=== PATIENT | male | born 1985 | race Caucasian/White ===

== ENCOUNTER 2018-05-08 05:43 | Outpatient (CLI) | payer OTHER ==
[~2018-05-08] VITALS: Ht 177.8 cm; Wt 70.3 kg
== END 2018-05-08 12:38 | disposition home or self-care (01) ==
LOC: PREOP 05:43 → EDBD 09:00 → PREOP 12:38
PROVIDERS: ATTEND Surgery
DX: Z01.818 Encounter for other preprocedural examination (principal)

== ENCOUNTER 2018-09-14 22:02 | Emergency (ER) | payer SELFPAY ==
[~2018-09-14] VITALS: Ht 175.3 cm; Wt 86.2 kg
[~2018-09-14 22:02] MED LIST: ACHD5005 PO
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
[2018-09-14] MEDS ORDERED: ONDANSETRON 4 MG/2 ML (SDV) Z0FRAN IVP ONE (22:30)
[2018-09-14] MEDS ORDERED: NS 1000 ML IV BAG IV ONE (22:30)
[2018-09-14] MEDS ORDERED: fentaNYL INJECTION 100 MCG/2 ML AMP IVP ONE (22:30)
[2018-09-14] MEDS ORDERED: LIDOCAINE 1% INJ 20 ML 20 ML VIAL INJ ONE (22:30)
[2018-09-14 22:34] LABS: HEMATOCRIT 42 % (40-54); MEAN CORPUSCULAR HEMOGLOBIN 32 PG (25-34); MEAN CORPUSCULAR HGB CONC 34 G/DL (32-36); MEAN CORPUSCULAR VOLUME 96 FL (80-99); PLATELET COUNT 198 10^3/uL (130-400); RED CELL DISTRIBUTION WIDTH 12.8 % (10.0-14.5); WHITE BLOOD COUNT 8.9 10^3/uL (4.3-11.0)
[2018-09-14 22:35] LABS: BASOPHILS # (AUTO) 0.1 10^3/uL (0.0-0.1); BASOPHILS % (AUTO) 1 % (0-10); EOSINOPHILS # (AUTO) 0.3 10^3/uL (0.0-0.3); EOSINOPHILS % (AUTO) 3 % (0-10); LYMPHOCYTES # (AUTO) 4.2 X 10^3 (1.0-4.0); LYMPHOCYTES % (AUTO) 47 % (12-44); MEAN PLATELET VOLUME 9.4 FL (7.4-10.4); MONOCYTES # (AUTO) 0.7 X 10^3 (0.0-1.0); MONOCYTES % (AUTO) 8 % (0-12); NEUTROPHILS # (AUTO) 3.7 X 10^3 (1.8-7.8); NEUTROPHILS % (AUTO) 42 % (42-75)
[2018-09-14 22:47] LABS: INR 0.9 (0.8-1.4); PROTHROMBIN TIME PATIENT 12.2 SEC (12.2-14.7)
[2018-09-14 23:00] LABS: BILIRUBIN,TOTAL < 0.2 MG/DL (0.1-1.0); BUN/CREATININE RATIO 12; CALCIUM 8.7 MG/DL (8.5-10.1); CARBON DIOXIDE 24 MMOL/L (21-32); CHLORIDE 106 MMOL/L (98-107); CREATININE SERUM 0.58 MG/DL (0.60-1.30); GFR ESTIMATED > 60; GLUCOSE 118 MG/DL (70-105); POTASSIUM 3.8 MMOL/L (3.6-5.0); SODIUM 144 MMOL/L (135-145)
[2018-09-14] MEDS ORDERED: NS 50 ML (IVPB) BAG IV ONE (23:00)
[2018-09-14] MEDS ORDERED: HOLD METFORMIN - RECEIVED CONTRAST 20 ML VIAL IV SCH (23:00)
[2018-09-14] MEDS ORDERED: IOHEXOL 350 MG/ML 100 ML (OMNIPAQUE 350) VIAL IV ONE (23:00)
[2018-09-14 23:01] LABS: ALANINE AMINOTRANSFERASE 25 U/L (0-55); ALBUMIN 4.3 GM/DL (3.2-4.5); ALKALINE PHOSPHATASE 52 U/L (40-136); TOTAL PROTEIN 7.2 GM/DL (6.4-8.2)
--- NOTE | 2018-09-14 23:10 | NUR ---
critical high ETOH of [address] Cortez
[2018-09-15] MEDS ORDERED: CEPH-507 PO (00:42)
[2018-09-15 00:45] VITALS: BP 130/84
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
== END 2018-09-15 00:45 | disposition home or self-care (01) ==
LOC: EDUNIT# 22:02 → ER FS 22:05
DX: S09.90XA Unspecified injury of head, initial encounter (principal); S01.92XA Laceration with foreign body of unspecified part of head, initial encounter; F10.20 Alcohol dependence, uncomplicated; V29.40XA Motorcycle driver injured in collision with unspecified motor vehicles in traffic accident, initial encounter
CPT/HCPCS: 36415; 70450; 71260; 72125; 74177; 80053; 80320; 85025; 85610; 85730

== ENCOUNTER 2019-02-17 08:11 | Emergency (ER) | payer SELFPAY ==
[~2019-02-17] VITALS: Ht 177.8 cm; Wt 85.5 kg
[~2019-02-17 08:11] MED LIST changes: +CEPH-507 PO
[2019-02-17] MEDS ORDERED: KETOROLAC 30 MG/ML VIAL IVP ONE (08:30)
[2019-02-17] MEDS ORDERED: NS IV 1000 ML 1,000 ML IV SCH ×2 (08:30→10:45)
[2019-02-17] MEDS ORDERED: ONDANSETRON 4 MG/2 ML (SDV) Z0FRAN IVP ONE ×2 (08:30→10:45)
--- NOTE | 2019-02-17 08:35 | ED Abdominal Pain ---
General Chief Complaint: Abdominal/GI Problems Stated Complaint: ABD PAIN Source of Information: Patient Exam Limitations: No Limitations History of Present Illness Date Seen by Provider: Feb 17, 2019 Time Seen by Provider: 08:22 Initial Comments The patient is a pleasant 33-year-old male presents for evaluation of left lower quadrant abdominal pain which started on Sunday, 2 days ago. He denies previous similar pain and denies any past surgical history to the abdomen. He reports that his urine has been dark and/or more concentrated than usual but he has not noticed any gross blood. He had a normal bowel movement this morning without any blood or pain. She's been having nausea and vomiting since Sunday as well. He states that the symptoms he drinks something he vomits. He denies any significant past medical history. He is alert and oriented 4, calm, and appears to be in no distress at this time. He denies back or flank pain, fevers or chills, penile or testicular pain, dizziness or syncope. Timing/Duration: 2-3 Days Severity/Quality: Moderate Location: LLQ Radiation: No Radiation Activities at Onset: None Modifying Factors: Improves With Analgesics Associated Symptoms: Denies Symptoms Allergies and Home Medications Allergies Coded Allergies: No Known Drug Allergies (Unverified , 05/08/18) Home Medications Cephalexin 500 Mg Capsule, 500 MG PO BID Prescribed by: DAISHA ARMENTA on 09/15/18 0042 Hydrocodone Bit/Acetaminophen 1 Tab Tab, 4 TAB PO Q6H PRN for PAIN-MODERATE Prescribed by: NICOLE TODD on 05/15/18 1133 Hydrocodone Bit/Acetaminophen 1 Tab Tab, 1 TAB PO Q6H PRN for PAIN-MODERATE Prescribed by: NICOLE TODD on 05/15/18 1329 Hydrocodone/Acetaminophen 1 Each Tablet, 1 TAB PO Q4-6HR Prescribed by: EDUARDO DOYLE on 02/17/19 0953 Moxifloxacin HCl 400 Mg Tablet, 400 MG PO DAILY Prescribed by: EDUARDO DOYLE on 02/17/1953 Ondansetron 4 Mg Tab.rapdis, 4 MG PO Q6H Prescribed by: EDUARDO DOYLE on 02/17/19 0953 Patient Home Medication List Home Medication List Reviewed: Yes Review of Systems Review of Systems Constitutional: no symptoms reported EENTM: No Symptoms Reported Respiratory: No Symptoms Reported, See HPI Cardiovascular: No Symptoms Reported, See HPI Gastrointestinal: Abdominal Pain, Nausea, Vomiting Genitourinary: No Symptoms Reported, See HPI Musculoskeletal: no symptoms reported Skin: no symptoms reported Psychiatric/Neurological: No Symptoms Reported, See HPI Endocrine: No Symptoms Reported, See HPI Hematologic/Lymphatic: No Symptoms Reported, See HPI All Other Systems Reviewed Negative Unless Noted: Yes Past Qabkxcz-Parhos-Ufmpyj Hx Past Med/Social Hx: Reviewed Nursing Past Med/Soc Hx Patient Social History Alcohol Beverage of Choice: Beer Type Used: Cigarettes 2nd Hand Smoke Exposure: No Recent Hopitalizations: No Immunizations Up To Date Tetanus Booster (TDap): Less than 5yrs Seasonal Allergies Seasonal Allergies: No Past Medical History Surgeries: No Respiratory: No Cardiac: No Neurological: No Reproductive Disorders: No Sexually Transmitted Disease: No HIV/AIDS: No Genitourinary: No Gastrointestinal: No Musculoskeletal: No Endocrine: No HEENT: No Loss of Vision: Denies Hearing Impairment: Denies Cancer: No Psychosocial: No Integumentary: No Blood Disorders: No Adverse Reaction/Blood Tranf: No (N/A) Physical Exam Vital Signs Vital Signs - First Documented 02/17/19 08:18 Temp 36.8 Pulse 79 Resp 16 B/P (MAP) 136/91 (106) Pulse Ox 97 Capillary Refill : Height/Weight/BMI Height: 5'9.00" Weight: 190lbs. 0oz. 86.376543wk; 24.5 BMI Method:Stated General Appearance: WD/WN, no apparent distress HEENT: PERRL/EOMI, normal ENT inspection, TMs normal, pharynx normal Respiratory: chest non-tender, lungs clear, normal breath sounds, no respiratory distress, no accessory muscle use Cardiovascular: regular rate, rhythm, no edema, no gallop, no JVD Gastrointestinal: normal bowel sounds, soft, no organomegaly, no pulsatile mass, tenderness (ttp LLQ, moderate, mild ttp in epigastric region, soft, no d istension, no guarding, no rigidity) Extremities: normal range of motion, non-tender, normal inspection, no pedal edema Back: normal inspection, no CVA tenderness, no vertebral tenderness Neurologic/Psychiatric: informatics nurse specialist II-XII nml as tested, alert, normal mood/affect, oriented x 3 Skin: normal color, warm/dry Procedures/Interventions Suture Size: 5-0 Progress/Results/Core Measures Results/Orders Lab Results Laboratory Tests Test 02/17/19 08:35 02/17/19 11:43 Range/Units White Blood Count 9.7 4.3-11.0 10^3/uL Red Blood Count 4.88 4.35-5.85 10^6/uL Hemoglobin 16.5 13.3-17.7 G/DL Hematocrit 48 40-54 % Mean Corpuscular Volume 34 L 80-99 FL Mean Corpuscular Hemoglobin 35 H 25-34 PG Mean Corpuscular Hemoglobin Concent 47 H 32-36 G/DL Red Cell Distribution Width 13.0 10.0-14.5 % Platelet Count 264 130-400 10^3/uL Mean Platelet Volume 9.3 7.4-10.4 FL Neutrophils (%) (Auto) 73 42-75 % Lymphocytes (%) (Auto) 17 12-44 % Monocytes (%) (Auto) 8 0-12 % Eosinophils (%) (Auto) 1 0-10 % Basophils (%) (Auto) 1 0-10 % Neutrophils # (Auto) 7.0 1.8-7.8 X 10^3 Lymphocytes # (Auto) 1.7 1.0-4.0 X 10^3 Monocytes # (Auto) 0.7 0.0-1.0 X 10^3 Eosinophils # (Auto) 0.1 0.0-0.3 10^3/uL Basophils # (Auto) 0.1 0.0-0.1 10^3/uL Sodium Level 139 135-145 MMOL/L Potassium Level 4.5 3.6-5.0 MMOL/L Chloride Level 98 98-107 MMOL/L Carbon Dioxide Level 28 21-32 MMOL/L Anion Gap 13 5-14 MMOL/L Blood Urea Nitrogen 13 7-18 MG/DL Creatinine 0.81 0.60-1.30 MG/DL Estimat Glomerular Filtration Rate > 60 BUN/Creatinine Ratio 16 Glucose Level 136 H 70-105 MG/DL Calcium Level 9.1 8.5-10.1 MG/DL Corrected Calcium 9.1 8.5-10.1 MG/DL Total Bilirubin 0.3 0.1-1.0 MG/DL Aspartate Amino Transf (AST/SGOT) 56 H 5-34 U/L Alanine Aminotransferase (ALT/SGPT) 20 0-55 U/L Alkaline Phosphatase 66 40-136 U/L Total Protein 7.4 6.4-8.2 GM/DL Albumin 4.0 3.2-4.5 GM/DL Amylase Level 65 25-125 U/L Lipase 84 H 8-78 U/L Urine Color YELLOW Urine Clarity CLEAR Urine pH 8.0 5-9 Urine Specific Cel[place] 1.010 L 1.016-1.022 Urine Protein NEGATIVE NEGATIVE Urine Glucose (UA) NEGATIVE NEGATIVE Urine Ketones NEGATIVE NEGATIVE Urine Nitrite NEGATIVE NEGATIVE Urine Bilirubin NEGATIVE NEGATIVE Urine Urobilinogen 0.2 NORMAL MG/DL Urine Leukocyte Esterase NEGATIVE NEGATIVE Urine RBC (Auto) NEGATIVE NEGATIVE Urine RBC RARE /HPF Urine WBC RARE /HPF Urine Squamous Epithelial Cells RARE /HPF Urine Crystals NONE /LPF Urine Bacteria NEGATIVE /HPF Urine Casts NONE /LPF Urine Mucus NONE /LPF Urine Culture Indicated NO My Orders Orders - EDUARDO DOYLE DO Comprehensive Metabolic Panel (02/17/19 08:26) Lipase (02/17/19 08:26) Amylase (02/17/19 08:26) Ua Culture If Indicated (02/17/19 08:26) Ed Iv/Invasive Line Start (02/17/19 08:26) Cbc With Automated Diff (02/17/19 08:26) Ct Abdomen/Pelvis W (02/17/19 08:26) Nothing By Mouth (02/17/19 Lunch) Ns Iv 1000 Ml (Sodium Chloride 0.9%) (02/17/19 08:30) Ketorolac Injection (Toradol Injection) (02/17/19 08:30) Ondansetron Injection (Zofran Injectio (02/17/19 08:30) Iohexol Injection (Omnipaque 350 Mg/Ml 1 (02/17/19 08:45) Received Contrast (Hold Metformin- Contr (02/17/19 08:45) Sodium Chloride Flush (Catheter Flush Sy (02/17/19 08:45) Ns (Ivpb) (Sodium Chloride 0.9% Ivpb Bag (02/17/19 08:45) Ondansetron Injection (Zofran Injectio (02/17/19 10:45) Ns Iv 1000 Ml (Sodium Chloride 0.9%) (02/17/19 10:45) Medications Given in ED Current Medications Medications Dose Ordered Sig/Connor Route Start Time Stop Time Status Last Admin Dose Admin Iohexol 100 ml ONCE ONCE IV 02/17/19 08:45 02/17/19 08:46 DC 02/17/19 09:02 100 ML Ketorolac Tromethamine 30 mg ONCE ONCE IVP 02/17/19 08:30 02/17/19 08:31 DC 02/17/19 09:03 30 MG Ondansetron HCl 4 mg ONCE ONCE IVP 02/17/19 08:30 02/17/19 08:31 DC 02/17/19 09:03 4 MG Ondansetron HCl 4 mg ONCE ONCE IVP 02/17/19 10:45 02/17/19 10:46 DC 02/17/19 10:51 4 MG Sodium Chloride 10 ml NEEDED PRN IV 02/17/19 08:45 02/17/19 09:02 10 ML Sodium Chloride 100 ml ONCE ONCE IV 02/17/19 08:45 02/17/19 08:46 DC 02/17/19 09:02 100 ML Vital Signs/I&O 02/17/19 08:18 Temp 36.8 Pulse 79 Resp 16 B/P (MAP) 136/91 (106) Pulse Ox 97 Progress Progress Note : Progress Note @0945 - CT demonstrates evidence of duodenitis and colitis. The patient denies history of Crohn's disease or inflammatory bowel disease. Awaiting urinalysis at this time. @1217 - patient updated on lab and imaging results. He will go home with a prescription for moxifloxacin, [place], and Zofran. He is to follow-up with his PCP and/or GI specialist in the next 1-2 days and to return to the emergency Department immediately for new or worsening symptoms. He expresses verbal understanding and agreement with the plan. Departure Impression Primary Impression: Duodenitis Additional Impression: Colitis Disposition: 01 HOME, SELF-CARE Condition: Stable Departure-Patient Inst. Decision time for Depature: 12:21 Referrals: NO,LOCAL PHYSICIAN (PCP/Family) Primary Care Physician Patient Instructions: Colitis Add. Discharge Instructions: Take the prescribed medications as directed. Return to the emergency Department immediately for new or worsening symptoms. Drink plenty of water at home. Follow-up with the GI specialist provided, or your doctor, in the next 2-3 days. Scripts Hydrocodone/Acetaminophen ([place] 5-325 Tablet) 1 Each Tablet 1 TAB PO Q4-6HR for Pain MDD 10 TABS for 7 Days, #15 TAB Prov: EDUARDO DOYLE DO 02/17/19 Ondansetron (Ondansetron Odt) 4 Mg Tab.rapdis 4 MG PO Q6H for Nausea/Vomiting for 7 Days, #20 TAB Prov: EDUARDO DOYLE DO 02/17/19 Moxifloxacin HCl (Moxifloxacin HCl) 400 Mg Tablet 400 MG PO DAILY for colitis/duodenitis for 10 Days, #10 TAB Prov: EDUARDO DOYLE DO 02/17/19 EDUARDO DOYLE DO Feb 17, 2019 08:35
[2019-02-17] MEDS ORDERED: HOLD METFORMIN - RECEIVED CONTRAST 20 ML VIAL IV SCH (08:45)
[2019-02-17] MEDS ORDERED: IOHEXOL 350 MG/ML 100 ML (OMNIPAQUE 350) VIAL IV ONE (08:45)
[2019-02-17] MEDS ORDERED: CATHETER FLUSH 10 ML SYR IV PRN (08:45)
[2019-02-17] MEDS ORDERED: NS 100 ML (IVPB) BAG IV ONE (08:45)
[2019-02-17 08:50] LABS: HEMATOCRIT 48 % (40-54); HEMOGLOBIN 16.5 G/DL (13.3-17.7); WHITE BLOOD COUNT 9.7 10^3/uL (4.3-11.0)
[2019-02-17 08:51] LABS: BASOPHILS % (AUTO) 1 % (0-10); EOSINOPHILS % (AUTO) 1 % (0-10); LYMPHOCYTES % (AUTO) 17 % (12-44); MEAN CORPUSCULAR HEMOGLOBIN 35 PG (25-34); MEAN CORPUSCULAR HGB CONC 47 G/DL (32-36); MEAN CORPUSCULAR VOLUME 34 FL (80-99); MEAN PLATELET VOLUME 9.3 FL (7.4-10.4); MONOCYTES % (AUTO) 8 % (0-12); NEUTROPHILS % (AUTO) 73 % (42-75); PLATELET COUNT 264 10^3/uL (130-400)
[2019-02-17 08:52] LABS: BASOPHILS # (AUTO) 0.1 10^3/uL (0.0-0.1); EOSINOPHILS # (AUTO) 0.1 10^3/uL (0.0-0.3); LYMPHOCYTES # (AUTO) 1.7 X 10^3 (1.0-4.0); MONOCYTES # (AUTO) 0.7 X 10^3 (0.0-1.0)
--- NOTE | 2019-02-17 09:15 | NUR ---
hr 68, spo2 98, bp 123/82, r 16
[2019-02-17 09:36] LABS: CARBON DIOXIDE 28 MMOL/L (21-32); CHLORIDE 98 MMOL/L (98-107); POTASSIUM 4.5 MMOL/L (3.6-5.0); SODIUM 139 MMOL/L (135-145)
--- NOTE | 2019-02-17 09:36 | Diagnostic Imaging Report ---
PROCEDURE: CT abdomen and pelvis with contrast. TECHNIQUE: Multiple contiguous axial images were obtained through the abdomen and pelvis after administration of intravenous contrast. Auto Exposure Controls were utilized during the CT exam to meet ALARA standards for radiation dose reduction. DATE: February 17, 2019. COMPARISON: CT chest, abdomen, and pelvis September 14, 2018. INDICATION: 33-year-old male, left lower quadrant abdominal pain, nausea, vomiting. FINDINGS: The visualized portions of the lung bases are clear. The heart is not enlarged. There is no pericardial effusion. The liver is normal in size and contour. There is no identified liver lesion. The main, right, and left portal veins are patent. The gallbladder is unremarkable. There is no intrahepatic or extrahepatic bile duct dilation. The main pancreatic duct is not abnormally dilated. Unremarkable appearance of the pancreatic parenchyma. There is abnormal fluid attenuation centered primarily adjacent to the second portion of duodenum although does extend near the level of the pancreatic head. The spleen is normal in size. The adrenal glands are unremarkable. Unremarkable appearance of the renal parenchyma. The urinary collecting systems are not distended. There is no identified renal or ureteral stone. The urinary bladder is unremarkable. There is abnormal wall thickening of the sigmoid colon which is not contiguous although does involve long segments of the sigmoid colon. There is also wall thickening of the transverse colon. The appendix is unremarkable and well seen on axial image 57 and adjacent sequential images. As mentioned above, there is abnormal fluid attenuation adjacent to the first and the second portion of duodenum. There does appear to be mucosal enhancement of the first and second portions of duodenum. There is no free intraperitoneal air, drainable fluid collection, or free pelvic fluid. There are atherosclerotic calcifications. There is no identified abnormally enlarged lymph node in the abdomen or pelvis which meets CT size criteria for adenopathy. There is a sclerotic lesion of the right femoral neck with narrow zone of a zone of transition measuring 13 mm in size with internal attenuation most suggestive of a benign bone island. There are bilateral L5 pars interarticularis defects. There is grade 2 anterolisthesis of L5 on S1 measuring 10 mm. There is severe disc height loss at L5-S1. There is a disc bulge at L4-L5. There is no identified acute bony abnormality. IMPRESSION: CT ABDOMEN AND PELVIS. 1. Abnormal fluid attenuation centered primarily adjacent to the first and second portions of duodenum with mucosal enhancement of the duodenum at this level. This most likely reflects an infectious or inflammatory duodenitis. The pancreatic parenchyma is unremarkable. 2. Abnormal wall thickening of the sigmoid colon and transverse colon most likely relating to an infectious or inflammatory colitis. 3. Bilateral L5 pars interarticularis defects with grade 2 anterolisthesis of L5 on S1. Dictated by: Dictated on workstation # [id number]
[2019-02-17 09:37] LABS: ALANINE AMINOTRANSFERASE 20 U/L (0-55); ALKALINE PHOSPHATASE 66 U/L (40-136); AMYLASE 65 U/L (25-125); BILIRUBIN,TOTAL 0.3 MG/DL (0.1-1.0); BUN/CREATININE RATIO 16; CALCIUM 9.1 MG/DL (8.5-10.1); CREATININE SERUM 0.81 MG/DL (0.60-1.30); GFR ESTIMATED > 60; GLUCOSE 136 MG/DL (70-105); TOTAL PROTEIN 7.4 GM/DL (6.4-8.2)
[2019-02-17 09:38] LABS: LIPASE 84 U/L (8-78)
[2019-02-17] MEDS ORDERED: MOXI400T31 PO (09:53)
[2019-02-17] MEDS ORDERED: HYDR-4226 PO (09:53)
[2019-02-17] MEDS ORDERED: ONDA4TAB11 PO (09:53)
--- NOTE | 2019-02-17 10:30 | NUR ---
hr 68, spo2 98, bp 124/86, r 18
--- NOTE | 2019-02-17 10:35 | NUR ---
Patient states he is still unable to urinate at this time. Also is nauseous from the water that he drank. Notified Dr Angulo.
--- NOTE | 2019-02-17 11:20 | NUR ---
hr 67, spo2 99, bp 122/80, r 16
[2019-02-17 12:10] LABS: CLARITY,URINE CLEAR; COLOR,URINE YELLOW
[2019-02-17 12:11] LABS: BACTERIA,URINE NEGATIVE /HPF; BILIRUBIN,URINE NEGATIVE (NEGATIVE); GLUCOSE, URINE (UA) NEGATIVE (NEGATIVE); KETONES,URINE NEGATIVE (NEGATIVE); LEUKOCYTE ESTERASE ,URINE NEGATIVE (NEGATIVE); NITRITE,URINE NEGATIVE (NEGATIVE); PROTEIN,URINE NEGATIVE (NEGATIVE); RBC,URINE RARE /HPF; SQUAMOUS EPITHELIAL CELL,UR RARE /HPF; UROBILINOGEN,URINE 0.2 MG/DL (NORMAL); WBC,URINE RARE /HPF
[2019-02-17 12:26] VITALS: BP 122/80
== END 2019-02-17 12:40 | disposition home or self-care (01) ==
LOC: EDUNIT# 08:11 → ER FS 08:15
DX: K29.80 Duodenitis without bleeding (principal); K52.9 Noninfective gastroenteritis and colitis, unspecified
CPT/HCPCS: 36415; 74177; 80053; 81000; 82150; 83690; 85025

== ENCOUNTER 2019-04-10 13:01 | Inpatient (IN) | payer SELFPAY ==
[~2019-04-10] VITALS: Ht 173.3 cm; Wt 79.6 kg
[~2019-04-10 13:01] MED LIST changes: +HYDR-4226 PO; +MOXI400T31 PO; +ONDA4TAB11 PO
[2019-04-10] MEDS ORDERED: ASPIRIN 81 MG CHEW (CHILDREN'S ASA) PO ONE (13:15)
[2019-04-10] MEDS ORDERED: LACTATED RINGERS 1,000 ML IV STA (13:23)
[2019-04-10] MEDS ORDERED: FAMOTIDINE 20MG/2ML IV (PEPCID) IV STA (13:23)
[2019-04-10] MEDS ORDERED: morphine INJ 10 MG/ML 1ML (SYR OR VIAL) IVP STA ×2 (13:23→14:38)
[2019-04-10] MEDS ORDERED: ONDANSETRON 4 MG/2 ML (SDV) Z0FRAN IVP ONE (13:30)
--- NOTE | 2019-04-10 13:34 | ED General ---
General Chief Complaint: Chest Pain Stated Complaint: CHEST/ABD PAIN Nursing Triage Note: C/O SOA, Chest pain and abdominal bloating Nursing Sepsis Screen: No Definite Risk History of Present Illness Date Seen by Provider: Apr 10, 2019 Time Seen by Provider: 13:00 Initial Comments The patient is a 34-year-old male who is a tobacco smoker but who is otherwise healthy. He presents with concern for acute onset of epigastric abdominal discomfort radiating to bilateral upper quadrants of the abdomen, down to the lower abdomen bilaterally and up into the mid sternal chest, all with onset ye about 24 hours prior to arrival, and worsening since then. Pain radiates through to the back. Pain is a 10 out of 10 in severity at present. Mild associated shortness of breath, patient thinks secondary to belly discomfort. Associated nausea with 6 episodes of nonbloody vomiting since this morning. No associated fevers, hematemesis, hematochezia or melena, productive cough, shortness of breath, abdominal pain, flank pain, dysuria or hematuria, testicular/scrotal/groin pain, changes in bowel habits. No therapy for discomfort prior to arrival. Review of records demonstrates that the patient was seen for abdominal discomfort in early February and had a diagnosis of duodenitis and colitis for which he was placed on moxifloxacin and encouraged to follow up closely with primary care and with gastroenterology, which he has not done. Patient thinks that while the location of this discomfort is different than his prior belly pain, that it feels rather similar otherwise. No therapy for discomfort prior to arrival. Allergies and Home Medications Allergies Coded Allergies: No Known Drug Allergies (Unverified , 05/08/18) Home Medications Cephalexin 500 Mg Capsule, 500 MG PO BID Prescribed by: DAISHA ARMENTA on 09/15/18 0042 Hydrocodone Bit/Acetaminophen 1 Tab Tab, 4 TAB PO Q6H PRN for PAIN-MODERATE Prescribed by: NICOLE TODD on 05/15/18 1133 Hydrocodone Bit/Acetaminophen 1 Tab Tab, 1 TAB PO Q6H PRN for PAIN-MODERATE Prescribed by: NICOLE TODD on 05/15/18 1329 Hydrocodone/Acetaminophen 1 Each Tablet, 1 TAB PO Q4-6HR Prescribed by: EDUARDO DOYLE on 02/17/19 0953 Moxifloxacin HCl 400 Mg Tablet, 400 MG PO DAILY Prescribed by: EDUARDO DOYLE on 02/17/1953 Ondansetron 4 Mg Tab.rapdis, 4 MG PO Q6H Prescribed by: EDUARDO DOYLE on 02/17/19 0953 Patient Home Medication List Home Medication List Reviewed: Yes Review of Systems Review of Systems Constitutional: see HPI All Other Systems Reviewed Negative Unless Noted: Yes (Negative excepted noted.) Past Ctarjgh-Exmdop-Mjpxhg Hx Past Med/Social Hx: Reviewed Nursing Past Med/Soc Hx Patient Social History Alcohol Use: Rarely Uses Number of Drinks Today: AA Alcohol Beverage of Choice: Beer Recreational Drug Use: No Smoking Status: Current Everyday Smoker Type Used: Cigarettes 2nd Hand Smoke Exposure: No Recent Foreign Travel: No Contact w/Someone Who Travel: No Recent Infectious Disease Expo: No Recent Hopitalizations: No Immunizations Up To Date Tetanus Booster (TDap): Less than 5yrs Seasonal Allergies Seasonal Allergies: No Past Medical History Surgeries: No Respiratory: No Cardiac: No Neurological: No Reproductive Disorders: No Sexually Transmitted Disease: No HIV/AIDS: No Genitourinary: No Gastrointestinal: No Musculoskeletal: No Endocrine: No HEENT: No Loss of Vision: Denies Hearing Impairment: Denies Cancer: No Psychosocial: No Integumentary: No Blood Disorders: No Adverse Reaction/Blood Tranf: No (N/A) Family Medical History Reviewed Nursing Family Hx Physical Exam Vital Signs Vital Signs - First Documented 04/10/19 13:02 Temp 36.2 Pulse 73 Resp 16 B/P (MAP) 144/90 (108) Pulse Ox 100 Capillary Refill : Less Than 3 Seconds Height, Weight, BMI Height: 5'9.00" Weight: 190lbs. 0oz. 86.760871bc; 27.00 BMI Method:Stated General Appearance: No Apparent Distress Comments This is a younger male appearing nontoxic and in no acute distress. Head is normocephalic and atraumatic. Neck is supple and nontender. Oropharynx is moist. Lungs are clear to auscultation in all stations. There is a normal S1 and S2 without rubs or gallops capillary refill is appropriate, less than 2 seconds globally. Abdomen is soft and nondistended and with mild bilateral upper quadrant tenderness to palpation without rebound or guarding. Skin is warm and dry without cyanosis, clubbing or edema. Psychiatrically, the patient demonstrates appropriate mood and affect and is alert. Procedures/Interventions Suture Size: 5-0 Progress/Results/Core Measures Suspected Sepsis Recent Fever Within 48 Hours: No Infection Criteria Present: None New/Unexplained Altered Menta: No Sepsis Screen: No Definite Risk SIRS Temperature: Pulse: 73 Respiratory Rate: 16 Laboratory Tests 04/10/19 13:10: White Blood Count 9.7 Blood Pressure 144 /90 Mean: 108 Laboratory Tests 04/10/19 13:10: Creatinine 0.72, Platelet Count 163, Total Bilirubin 3.8H 04/10/19 14:37: Results/Orders Lab Results Laboratory Tests Test 04/10/19 13:10 04/10/19 14:37 Range/Units White Blood Count 9.7 4.3-11.0 10^3/uL Red Blood Count 4.57 4.35-5.85 10^6/uL Hemoglobin 15.5 13.3-17.7 G/DL Hematocrit 44 40-54 % Mean Corpuscular Volume 95 80-99 FL Mean Corpuscular Hemoglobin 34 25-34 PG Mean Corpuscular Hemoglobin Concent 36 32-36 G/DL Red Cell Distribution Width 13.2 10.0-14.5 % Platelet Count 163 130-400 10^3/uL Mean Platelet Volume 10.6 H 7.4-10.4 FL Neutrophils (%) (Auto) 80 H 42-75 % Lymphocytes (%) (Auto) 12 12-44 % Monocytes (%) (Auto) 7 0-12 % Eosinophils (%) (Auto) 0 0-10 % Basophils (%) (Auto) 0 0-10 % Neutrophils # (Auto) 7.7 1.8-7.8 X 10^3 Lymphocytes # (Auto) 1.2 1.0-4.0 X 10^3 Monocytes # (Auto) 7.0 H 0.0-1.0 X 10^3 Eosinophils # (Auto) 0.0 0.0-0.3 10^3/uL Basophils # (Auto) 0.0 0.0-0.1 10^3/uL Sodium Level 129 L 135-145 MMOL/L Potassium Level 6.3 H 3.6-5.0 MMOL/L Chloride Level 90 L 98-107 MMOL/L Carbon Dioxide Level 21 21-32 MMOL/L Anion Gap 18 H 5-14 MMOL/L Blood Urea Nitrogen 7 7-18 MG/DL Creatinine 0.72 0.60-1.30 MG/DL Estimat Glomerular Filtration Rate > 60 BUN/Creatinine Ratio 10 Glucose Level 152 H 70-105 MG/DL Calcium Level 8.6 8.5-10.1 MG/DL Corrected Calcium 8.8 8.5-10.1 MG/DL Total Bilirubin 3.8 H 0.1-1.0 MG/DL Aspartate Amino Transf (AST/SGOT) 342 H 5-34 U/L Alanine Aminotransferase (ALT/SGPT) 193 H 0-55 U/L Alkaline Phosphatase 161 H 40-136 U/L Troponin I < 0.30 <0.30 NG/ML Pro-B-Type Natriuretic Peptide 193.2 H <75.0 PG/ML Total Protein 7.5 6.4-8.2 GM/DL Albumin 3.7 3.2-4.5 GM/DL Lipase 1015 H 8-78 U/L My Orders Orders - ADITI LAZO MD Cbc With Automated Diff (04/10/19 13:11) Comprehensive Metabolic Panel (04/10/19 13:11) Troponin I Fs (04/10/19 13:11) Ekg Tracing (04/10/19 13:11) Chest 1 View Ap/Pa Only (04/10/19 13:11) Protime With Inr (04/10/19 13:11) Partial Thromboplastin Time (04/10/19 13:11) Probnp Fs (04/10/19 13:11) Aspirin Chewable Tablet (Baby Aspirin Ch (04/10/19 13:15) Lipase (04/10/19 13:23) Ua Culture If Indicated (04/10/19 13:23) Lactated Ringers (Lr 1000 Ml Iv Solution (04/10/19 13:23) Famotidine Injection (Pepcid Injection) (04/10/19 13:23) Ed Iv/Invasive Line Start (04/10/19 13:23) Ondansetron Injection (Zofran Injectio (04/10/19 13:30) Morphine Injection (Morphine Injection (04/10/19 13:23) Ct Abdomen/Pelvis W (04/10/19 13:23) Iohexol Injection (Omnipaque 350 Mg/Ml 1 (04/10/19 14:15) Received Contrast (Hold Metformin- Contr (04/10/19 14:15) Sodium Chloride Flush (Catheter Flush Sy (04/10/19 14:15) Ns (Ivpb) (Sodium Chloride 0.9% Ivpb Bag (04/10/19 14:15) Morphine Injection (Morphine Injection (04/10/19 14:38) Ns Iv 1000 Ml (Sodium Chloride 0.9%) (04/10/19 14:38) Comprehensive Metabolic Panel (04/10/19 14:38) Calcium Gluconate 10% Inj (Calcium Glu (04/10/19 14:45) Calcium Gluconate 10% Inj (Calcium Glu (04/10/19 14:45) Bilirubin,Direct (04/10/19 14:44) Gamma Glutamyl Transpeptidase (04/10/19 14:44) Medications Given in ED Current Medications Medications Dose Ordered Sig/Connor Route Start Time Stop Time Status Last Admin Dose Admin Aspirin 324 mg ONCE ONCE PO 04/10/19 13:15 04/10/19 13:16 DC 04/10/19 14:02 324 MG Iohexol 100 ml ONCE ONCE IV 04/10/19 14:15 04/10/19 14:16 DC 04/10/19 14:16 100 ML Ondansetron HCl 4 mg ONCE ONCE IVP 04/10/19 13:30 04/10/19 13:31 DC 04/10/19 14:05 4 MG Sodium Chloride 10 ml NEEDED PRN IV 04/10/19 14:15 04/10/19 14:16 10 ML Sodium Chloride 100 ml ONCE ONCE IV 04/10/19 14:15 04/10/19 14:16 DC 04/10/19 14:16 80 ML Vital Signs/I&O 04/10/19 13:02 Temp 36.2 Pulse 73 Resp 16 B/P (MAP) 144/90 (108) Pulse Ox 100 Capillary Refill : Less Than 3 Seconds Blood Pressure Mean: 108 POS Progress Note : Time: 13:33 Progress Note Younger male gentleman with rather severe epigastric discomfort which radiates to bilateral upper and lower quadrants of the abdomen, the midsternal chest and also to the back. Had a diagnosis of duodenitis and colitis last month without any history of inflammatory bowel disease. Was instructed to follow up with GI but did not. We will check labs and EKG and chest x-ray and CT of the abdomen and pelvis with IV contrast. We'll give IV fluids and medication for pain and nausea. We will then reevaluate. Update 1430: Labs and CT imaging with concern for acute pancreatitis, in context likely of biliary origin (despite no biliary pathology detected by CT) given significant evidence of cholestasis and acute hepatic injury/inflammation by labs. Patient appears to be acutely hyperkalemic as well without significant acute EKG changes of concern. We will go ahead and give some calcium gluconate and order additional fluids. We are repeating CMP at this time to eliminate conc leigha for hemolysis. We'll send GGT and direct bili as well. Update 1450: Case discussed with Dr. Barrios who is comfortable accepting the patient to his service at [facility]. We will proceed with transfer at this time for trending of pancreatic enzyme levels, hepatic function, pain and nausea control and clear liquid diet. We will place an order for a right upper quadrant ultrasound to be completed upon arrival to [facility]. We will proceed with transfer for admission at this time. ECG EKG : Comment Sinus rhythm, rate 74, no acute ST elevation or depression, T-wave inversion in lead V3 only, uncertain chronicity as no priors for comparison, MI 149, QRS 101, QTC 45, EP interpretation. Diagnostic Imaging Comments CT ABDOMEN/PELVIS W PROCEDURE: CT abdomen and pelvis with contrast. TECHNIQUE: Multiple contiguous axial images were obtained through the abdomen and pelvis after administration of intravenous contrast. Auto Exposure Controls were utilized during the CT exam to meet ALARA standards for radiation dose reduction. INDICATION: Chest and abdominal pain. COMPARISON: CT abdomen and pelvis with IV contrast 02/17/2019. FINDINGS: The lung bases are clear. There is edema and marked mesenteric stranding about the tail of the pancreas. No pancreatic ductal dilatation. The gallbladder and common bile duct are negative. No fluid collections. No free intraperitoneal air. No evidence of bowel obstruction. The liver, spleen, adrenals, kidneys, collecting systems and bladder are negative. Negative appendix. No lymphadenopathy. No acute osseous findings. IMPRESSION: CT findings consistent with acute pancreatitis. No peripancreatic fluid collections. CHEST 1 VIEW AP/PA ONLY EXAMINATION: Chest 1 view HISTORY: Chest pain COMPARISON: None available. FINDINGS: The lungs are clear without edema or pneumonia. No pleural effusion or pneumothorax. Heart size is normal. IMPRESSION: 1. Clear lungs. Departure Impression Primary Impression: Acute pancreatitis without infection or necrosis Qualified Codes: K85.80 - Other acute pancreatitis without necrosis or infection Additional Impressions: Transaminasemia Cholestasis Acute hyponatremia Acute hyperkalemia Disposition: 09 ADMITTED INPATIENT Condition: Stable Departure-Patient Inst. Referrals: NO,LOCAL PHYSICIAN (PCP/Family) Primary Care Physician ADITI LAZO MD Apr 10, 2019 13:34 POS
[2019-04-10 13:46] LABS: BASOPHILS % (AUTO) 0 % (0-10); EOSINOPHILS % (AUTO) 0 % (0-10); HEMATOCRIT 44 % (40-54); HEMOGLOBIN 15.5 G/DL (13.3-17.7); LYMPHOCYTES # (AUTO) 1.2 X 10^3 (1.0-4.0); LYMPHOCYTES % (AUTO) 12 % (12-44); MEAN CORPUSCULAR HEMOGLOBIN 34 PG (25-34); MEAN CORPUSCULAR HGB CONC 36 G/DL (32-36); MEAN CORPUSCULAR VOLUME 95 FL (80-99); MEAN PLATELET VOLUME 10.6 FL (7.4-10.4); MONOCYTES % (AUTO) 7 % (0-12); NEUTROPHILS # (AUTO) 7.7 X 10^3 (1.8-7.8); NEUTROPHILS % (AUTO) 80 % (42-75); PLATELET COUNT 163 10^3/uL (130-400); RED CELL DISTRIBUTION WIDTH 13.2 % (10.0-14.5); WHITE BLOOD COUNT 9.7 10^3/uL (4.3-11.0)
[2019-04-10] MEDS ORDERED: IOHEXOL 350 MG/ML 100 ML (OMNIPAQUE 350) VIAL IV ONE (14:15)
[2019-04-10] MEDS ORDERED: NS 100 ML (IVPB) BAG IV ONE (14:15)
[2019-04-10] MEDS ORDERED: CATHETER FLUSH 10 ML SYR IV PRN (14:15)
[2019-04-10] MEDS ORDERED: HOLD METFORMIN - RECEIVED CONTRAST 20 ML VIAL IV SCH (14:15)
--- NOTE | 2019-04-10 14:17 | Diagnostic Imaging Report ---
EXAMINATION: Chest 1 view HISTORY: Chest pain COMPARISON: None available. FINDINGS: The lungs are clear without edema or pneumonia. No pleural effusion or pneumothorax. Heart size is normal. IMPRESSION: 1. Clear lungs. Dictated by: Dictated on workstation # [id number]
--- NOTE | 2019-04-10 14:24 | Diagnostic Imaging Report ---
PROCEDURE: CT abdomen and pelvis with contrast. TECHNIQUE: Multiple contiguous axial images were obtained through the abdomen and pelvis after administration of intravenous contrast. Auto Exposure Controls were utilized during the CT exam to meet ALARA standards for radiation dose reduction. INDICATION: Chest and abdominal pain. COMPARISON: CT abdomen and pelvis with IV contrast 02/17/2019. FINDINGS: The lung bases are clear. There is edema and marked mesenteric stranding about the tail of the pancreas. No pancreatic ductal dilatation. The gallbladder and common bile duct are negative. No fluid collections. No free intraperitoneal air. No evidence of bowel obstruction. The liver, spleen, adrenals, kidneys, collecting systems and bladder are negative. Negative appendix. No lymphadenopathy. No acute osseous findings. IMPRESSION: CT findings consistent with acute pancreatitis. No peripancreatic fluid collections. Dictated by: Dictated on workstation # [id number]
[2019-04-10 14:28] LABS: ALANINE AMINOTRANSFERASE 193 U/L (0-55); ALKALINE PHOSPHATASE 161 U/L (40-136); BILIRUBIN,TOTAL 3.8 MG/DL (0.1-1.0); BUN/CREATININE RATIO 10; CALCIUM 8.6 MG/DL (8.5-10.1); CARBON DIOXIDE 21 MMOL/L (21-32); CHLORIDE 90 MMOL/L (98-107); CREATININE SERUM 0.72 MG/DL (0.60-1.30); GFR ESTIMATED > 60; GLUCOSE 152 MG/DL (70-105); POTASSIUM 6.3 MMOL/L (3.6-5.0); SODIUM 129 MMOL/L (135-145)
[2019-04-10 14:29] LABS: ALBUMIN 3.7 GM/DL (3.2-4.5); LIPASE 1015 U/L (8-78); TOTAL PROTEIN 7.5 GM/DL (6.4-8.2)
[2019-04-10] MEDS ORDERED: NS IV 1000 ML 1,000 ML IV STA (14:38)
[2019-04-10] MEDS ORDERED: CALCIUM GLUCONATE 10% INJ 4.65 MEQ in NS (IVPB) 50 ML IV ONE ×4 (14:45)
[2019-04-10 15:13] LABS: ALANINE AMINOTRANSFERASE 153 U/L (0-55); ALKALINE PHOSPHATASE 138 U/L (40-136); BILIRUBIN,TOTAL 3.2 MG/DL (0.1-1.0); BUN/CREATININE RATIO 10; CALCIUM 8.1 MG/DL (8.5-10.1); CARBON DIOXIDE 22 MMOL/L (21-32); CHLORIDE 93 MMOL/L (98-107); GFR ESTIMATED > 60; GLUCOSE 148 MG/DL (70-105); POTASSIUM 3.7 MMOL/L (3.6-5.0); SODIUM 131 MMOL/L (135-145)
[2019-04-10 15:14] LABS: ALBUMIN 3.2 GM/DL (3.2-4.5); PROTHROMBIN TIME PATIENT 13.2 SEC (12.2-14.7); TOTAL PROTEIN 5.9 GM/DL (6.4-8.2)
--- NOTE | 2019-04-10 17:18 | NUR ---
RODERICK LIU admitted to room 412-1, with an admitting diagnosis of ACUTE PANCREATITIS , on 04/10/19 from [place] [facility] via EMS, accompanied by EMS STAFF.RODERICK LIU introduced to surroundings, call light, bed controls, phone, TV, temperature control, lights, meal times, smoking policy, visitor policy, side rail policy, bathrooms and showers. Patient Rights given to patient in the handbook. RODERICK LIU verbalizes understanding that [facility] is not responsible for the loss or damage to any personal effects or valuables that are kept in the patients posession during their hospitalization. RODERICK LIU verbalizes understanding of Interdisciplinary Patient Education. Patient and/or family were informed about the Rapid Response Team and its purpose.
[2019-04-10 17:25] VITALS: BP 158/97
[2019-04-10 17:32] VITALS: BP 155/97
[2019-04-10] MEDS ORDERED: morphine INJ 4 MG/ML 1 ML (VIAL/SYRINGE) IV PRN (17:45)
[2019-04-10] MEDS ORDERED: ONDANSETRON 4 MG/2 ML (SDV) Z0FRAN IV PRN ×2 (17:45)
--- NOTE | 2019-04-10 17:50 | HISTORY AND PHYSICAL ---
DATE OF SERVICE: HISTORY OF PRESENT ILLNESS: The patient is a 34-year-old male, who presented to the Emergency Department with epigastric pain that started approximately 24 hours ago. He also reports that the pain radiated towards the upper abdominal quadrants as well as towards the back. He states that he has not had this type of pain before in the past. He does smoke and drink alcohol and he does not report any past history of peptic ulcer disease. He also does report some mild nausea; however, no vomiting. CT scan was performed, which did show likely biliary sludge. He also did have an elevated lipase of 1015 and total bilirubin of 3.2 consistent with a gallstone pancreatitis. PAST MEDICAL HISTORY: History of duodenitis, colitis. PAST SURGERIES: None. ALLERGIES: No known drug allergies. MEDICATIONS: Cephalexin, hydrocodone, levofloxacin, Zofran. SOCIAL HISTORY: Positive smoke. Positive alcohol. FAMILY HISTORY: Noncontributory. VITAL SIGNS: Temperature 36.2, blood pressure 134/82, pulse 74, respirations 18, pulse ox 98% on room air. REVIEW OF SYSTEMS: A well-nourished male, currently in no acute distress. He is not experiencing any shortness of breath or difficulty breathing. No chest pain, palpitations, diaphoresis. Intermittent episodes of nausea, no vomiting, no diarrhea, constipation, no red blood per rectum, no dark tarry stools. No fever, chills, no recent inadvertent weight loss. All other review of systems is negative. PHYSICAL EXAMINATION: CHEST: Clear. Good breath sounds bilaterally. HEART: Regular, no murmurs. EXTREMITIES: No lower extremity edema, negative Homans sign. HEENT: No scleral icterus, no cervical lymphadenopathy. ABDOMEN: Soft, nondistended. There is pain in the epigastric region with voluntary guarding, no rebound. There is also pain in the right upper abdominal quadrant. SKIN: Warm, dry. LABORATORY DATA: WBC 9.7, hemoglobin 15.5, hematocrit 44, platelets 163. Total bilirubin 3.2, lipase 1015. ASSESSMENT AND PLAN: A 34-year-old male with gallstone pancreatitis. We will admit him, proceed with IV fluid hydration as well as pain control and bowel rest. We will also get an ultrasound to evaluate his biliary ducts. We will also proceed with serial examination of his liver function enzymes as well as amylase and lipase. Once these are closer to normalizing, we will proceed with a laparoscopic cholecystectomy. If these stay elevated or trend upward, he will either need an MRCP or ERCP as well as possible ERCP, papillotomy and stent placement. Job ID: [id number] DocumentID: [id number] Dictated Date: 04/10/2019 17:14:54 Associate Product Integrity Engineer Date: 04/10/2019 17:49:58 Dictated By: JENA RENTERIA MD
[2019-04-10] MEDS ORDERED: FLU QUADRIvalent (5+ YOA) 2019-2020 (AFLURIA) 0.5 ML IM ONE (18:04)
[2019-04-10] MEDS: D5 NS 1000 ML IV SOLUTION 1,000 ML IV SCH (18:14)
[2019-04-10] MEDS: fentaNYL INJECTION 100 MCG/2 ML AMP IVP PRN ×2 (18:22→23:07)
[2019-04-10] MEDS: PANTOPRAZOLE 40 MG (PROTONIX) VIAL IV SCH (18:22)
[2019-04-10 19:50] VITALS: BP 151/93
[2019-04-10] MEDS: HYDROcodone/APAP 7.5 MG/325 MG (LORTAB, LORCET PLUS) TABLET PO PRN (20:06)
[2019-04-10 21:44] LABS: ALANINE AMINOTRANSFERASE 149 U/L (0-55); ALKALINE PHOSPHATASE 132 U/L (40-136); AMYLASE 462 U/L (25-125); BILIRUBIN,TOTAL 3.4 MG/DL (0.1-1.0); BUN/CREATININE RATIO 7; CALCIUM 7.5 MG/DL (8.5-10.1); CARBON DIOXIDE 22 MMOL/L (21-32); CHLORIDE 98 MMOL/L (98-107); CREATININE SERUM 0.73 MG/DL (0.60-1.30); GFR ESTIMATED > 60; GLUCOSE 157 MG/DL (70-105); POTASSIUM 3.7 MMOL/L (3.6-5.0); SODIUM 132 MMOL/L (135-145); TOTAL PROTEIN 5.7 GM/DL (6.4-8.2)
[2019-04-10 22:18] LABS: LIPASE 1866 U/L (8-78)
[2019-04-11] VITALS: BP 144/80
[2019-04-11] MEDS: D5 NS 1000 ML IV SOLUTION 1,000 ML IV SCH ×2 (01:59→08:50)
[2019-04-11] MEDS: fentaNYL INJECTION 100 MCG/2 ML AMP IVP PRN ×3 (03:38→19:39)
[2019-04-11 04:00] VITALS: BP 138/81
[2019-04-11 05:23] LABS: BASOPHILS % (AUTO) 0 % (0-10); EOSINOPHILS # (AUTO) 0.1 10^3/uL (0.0-0.3); EOSINOPHILS % (AUTO) 1 % (0-10); HEMATOCRIT 42 % (40-54); HEMOGLOBIN 14.9 G/DL (13.3-17.7); LYMPHOCYTES % (AUTO) 11 % (12-44); MEAN CORPUSCULAR HEMOGLOBIN 35 PG (25-34); MEAN CORPUSCULAR HGB CONC 36 G/DL (32-36); MEAN CORPUSCULAR VOLUME 97 FL (80-99); MEAN PLATELET VOLUME 10.3 FL (7.4-10.4); MONOCYTES # (AUTO) 0.6 X 10^3 (0.0-1.0); MONOCYTES % (AUTO) 7 % (0-12); NEUTROPHILS # (AUTO) 7.4 X 10^3 (1.8-7.8); NEUTROPHILS % (AUTO) 81 % (42-75); PLATELET COUNT 114 10^3/uL (130-400); WHITE BLOOD COUNT 9.1 10^3/uL (4.3-11.0)
[2019-04-11 05:44] LABS: ALANINE AMINOTRANSFERASE 126 U/L (0-55); ALBUMIN 2.9 GM/DL (3.2-4.5); ALKALINE PHOSPHATASE 120 U/L (40-136); AMYLASE 425 U/L (25-125); BILIRUBIN,TOTAL 3.6 MG/DL (0.1-1.0); BUN/CREATININE RATIO 5; CALCIUM 7.4 MG/DL (8.5-10.1); CARBON DIOXIDE 26 MMOL/L (21-32); CHLORIDE 98 MMOL/L (98-107); GFR ESTIMATED > 60; GLUCOSE 158 MG/DL (70-105); POTASSIUM 4.4 MMOL/L (3.6-5.0); SODIUM 133 MMOL/L (135-145); TOTAL PROTEIN 5.5 GM/DL (6.4-8.2)
[2019-04-11 06:13] LABS: LIPASE 1722 U/L (8-78)
[2019-04-11] MEDS: PANTOPRAZOLE 40 MG (PROTONIX) VIAL IV SCH ×2 (06:25→14:48)
[2019-04-11] MEDS: HYDROcodone/APAP 7.5 MG/325 MG (LORTAB, LORCET PLUS) TABLET PO PRN ×3 (06:25→14:48)
[2019-04-11] MEDS ORDERED: FLU QUADRIvalent (5+ YOA) 2019-2020 (AFLURIA) 0.5 ML IM ONE (07:00)
[2019-04-11 07:25] VITALS: BP 130/88
--- NOTE | 2019-04-11 09:21 | Diagnostic Imaging Report ---
PROCEDURE: US Gallbladder. TECHNIQUE: Multiple real-time grayscale images were obtained over the right upper quadrant in various projections. INDICATION: Acute pancreatitis. There is hepatomegaly with fatty infiltration of the liver. There is a small amount of free fluid around the liver. Normal hepatopedal flow in the main portal vein. Gallbladder is unremarkable with no gallstones or gallbladder wall thickening. Common bile duct measures 5.5 mm. No sonographic Craig's sign. Right kidney measures 13.2 cm in length and shows no mass, cyst or hydronephrosis. Pancreas is not well seen. IMPRESSION: 1. Hepatomegaly with fatty infiltration of the liver. Mild perihepatic ascites. Nonvisualization of the pancreas. Normal gallbladder. Dictated by: Dictated on workstation # [id number]
[2019-04-11] MEDS ORDERED: IBUP-2055 PO (09:29)
[2019-04-11] MEDS ORDERED: TETR15DR95 OU (09:29)
[2019-04-11] MEDS ORDERED: ASCO125T PO (09:29)
[2019-04-11] MEDS ORDERED: CALC10009 PO (09:29)
--- NOTE | 2019-04-11 09:29 | NUR ---
SPOKE WITH THE PT WELL GOING THRU THE EXT MED HISTORY TO COMPLETE THE MED REC. PT SAYS HE DOES NOT TAKE ANY PRESCRIPTION MEDICATIONS (I ALSO VERIFIED THIS WITH NIRAV) OTC MEDS: (ALL THESE MEDICATIONS ARE PRN) IBUPROFEN VISINE DROPS TUMS
[2019-04-11] MEDS ORDERED: NICOTINE 21 MG (NICODERM) PATCH ONE (10:40)
--- NOTE | 2019-04-11 10:44 | Progress Note ---
Subjective Date Seen by a Provider: Apr 11, 2019 Time Seen by a Provider: 09:55 Subjective/Events-last exam Patient seen with Dr. Barrios. Patient reports still having abdominal pain. No N/V at this time. No F/C. Patient reports that he is ambulating and tolerating liquid diet. Patient reports that he would like to smoke, however explained to patient that he cannot and hospital policy will not allow. It was explained that we could proceed with nicotine patch. He does report that he does drink a couple beers each night after work. Objective Exam Vital Signs Date Time Temp Pulse Resp B/P (MAP) Pulse Ox O2 Delivery O2 Flow Rate FiO2 04/11/19 07:25 36.7 94 18 130/88 (102) 96 Room Air 04/11/19 07:00 88 04/11/19 04:00 37.8 84 18 138/81 (100) 97 Room Air 04/11/19 01:00 90 04/11/19 00:00 36.6 94 18 144/80 (101) 98 Room Air 04/10/19 20:00 Room Air 04/10/19 19:50 37.0 84 20 151/93 (112) 99 Room Air 04/10/19 19:00 86 04/10/19 18:13 74 04/10/19 17:32 36.8 78 20 155/97 99 Room Air 04/10/19 17:25 36.8 78 20 158/97 (117) 99 Room Air 04/10/19 17:24 99 Room Air 04/10/19 16:39 74 18 134/82 99 04/10/19 13:02 36.2 73 16 144/90 (108) 100 I & O 04/11/19 07:00 Intake Total 1450 ml Balance 1450 ml Capillary Refill : Less Than 3 Seconds General Appearance: No Apparent Distress, WD/WN Neck: Full Range of Motion, Normal Inspection, Supple Respiratory: Normal Breath Sounds, No Accessory Muscle Use, No Respiratory Distress Cardiovascular: Regular Rate, Rhythm, No Edema Gastrointestinal: normal bowel sounds, soft, guarding, tenderness (Upper abdomen to palpation) Extremity: Normal Capillary Refill, Normal Inspection, Normal Range of Motion Neurologic/Psychiatric: Alert, Oriented x3 Skin: Normal Color, Warm/Dry, Other (Multiple tattoos over upper torso and upper extremities.) Results Lab Laboratory Tests 04/10/19 13:10: White Blood Count 9.7, Red Blood Count 4.57, Hemoglobin 15.5, Hematocrit 44, Mean Corpuscular Volume 95, Mean Corpuscular Hemoglobin 34, Mean Corpuscular Hemoglobin Concent 36, Red Cell Distribution Width 13.2, Platelet Count 163, [place] n Platelet Volume 10.6H, Neutrophils (%) (Auto) 80H, Lymphocytes (%) (Auto) 12, Monocytes (%) (Auto) 7, Eosinophils (%) (Auto) 0, Basophils (%) (Auto) 0, Neutrophils # (Auto) 7.7, Lymphocytes # (Auto) 1.2, Monocytes # (Auto) 7.0H, Eosinophils # (Auto) 0.0, Basophils # (Auto) 0.0, Sodium Level 129L, Potassium Level 6.3H, Chloride Level 90L, Carbon Dioxide Level 21, Anion Gap 18H, Blood Urea Nitrogen 7, Creatinine 0.72, Estimat Glomerular Filtration Rate > 60, BUN/Creatinine Ratio 10, Glucose Level 152H, Calcium Level 8.6, Corrected Calcium 8.8, Total Bilirubin 3.8H, Aspartate Amino Transf (AST/SGOT) 342H, Alanine Aminotransferase (ALT/SGPT) 193H, Alkaline Phosphatase 161H, Troponin I < 0.30, Pro-B-Type Natriuretic Peptide 193.2H, Total Protein 7.5, Albumin 3.7, Lipase 1015H 04/10/19 14:25: Magnesium Level 1.3L 04/10/19 14:37: Sodium Level 131L, Potassium Level 3.7, Chloride Level 93L, Carbon Dioxide Level 22, Anion Gap 16H, Blood Urea Nitrogen 7, Creatinine 0.70, Estimat Glomerular Filtration Rate > 60, BUN/Creatinine Ratio 10, Glucose Level 148H, Calcium Level 8.1L, Corrected Calcium 8.7, Total Bilirubin 3.2H, Aspartate Amino Transf (AST/SGOT) 255H, Alanine Aminotransferase (ALT/SGPT) 153H, Alkaline Phosphatase 138H, Total Protein 5.9L, Albumin 3.2, Prothrombin Time 13.2, INR Comment 1.0, Activated Partial Thromboplast Time 29, Direct Bilirubin 1.9H 04/10/19 21:10: Sodium Level 132L, Potassium Level 3.7, Chloride Level 98, Carbon Dioxide Level 22, Anion Gap 12, Blood Urea Nitrogen 5L, Creatinine 0.73, Estimat Glomerular Filtration Rate > 60, BUN/Creatinine Ratio 7, Glucose Level 157H, Calcium Level 7.5L, Corrected Calcium 8.3L, Total Bilirubin 3.4H, Aspartate Amino Transf (AST/SGOT) 207H, Alanine Aminotransferase (ALT/SGPT) 149H, Alkaline Phosphatase 132, Total Protein 5.7L, Albumin 3.0L, Lipase 1866H, Amylase Level 462H 04/11/19 04:55: White Blood Count 9.1, Red Blood Count 4.31L, Hemoglobin 14.9, Hematocrit 42, Mean Corpuscular Volume 97, Mean Corpuscular Hemoglobin 35H, Mean Corpuscular Hemoglobin Concent 36, Red Cell Distribution Width 14.0, Platelet Count 114L, Mean Platelet Volume 10.3, Neutrophils (%) (Auto) 81H, Lymphocytes (%) (Auto) 11L, Monocytes (%) (Auto) 7, Eosinophils (%) (Auto) 1, Basophils (%) (Auto) 0, Neutrophils # (Auto) 7.4, Lymphocytes # (Auto) 1.0, Monocytes # (Auto) 0.6, Eosinophils # (Auto) 0.1, Basophils # (Auto) 0.0, Sodium Level 133L, Potassium Level 4.4, Chloride Level 98, Carbon Dioxide Level 26, Anion Gap 9, Blood Urea Nitrogen 4L, Creatinine 0.80, Estimat Glomerular Filtration Rate > 60, BUN/Creatinine Ratio 5, Glucose Level 158H, Calcium Level 7.4L, Corrected Calcium 8.3L, Total Bilirubin 3.6H, Aspartate Amino Transf (AST/SGOT) 157H, Alanine Aminotransferase (ALT/SGPT) 126H, Alkaline Phosphatase 120, Total Protein 5.5L, Albumin 2.9L, Amylase Level 425H, Lipase 1722H Assessment/Plan Assessment/Plan Assess & Plan/Chief Complaint A 34 year old male with acute pancreatitis VSS Amylase, lipase, and total bilirubin still elevated, will continue to monitor labs. IV fluids, pain, and nausea meds. Clear liquid diet. Ambulation May use nicotine patch for patient if he agrees. Clinical Quality Measures DVT/VTE Risk/Contraindication: Risk Factor Score Per Nursin RFS Level Per Nursing on Admit: 1=Low/No VTE PPX TAPAN SC[employer]LON [employer] P[employer]ER Apr 11, 2019 10:44 POS
[2019-04-11] MEDS: NICOTINE 21 MG (NICODERM) PATCH TD SCH (10:45)
[2019-04-11 11:03] VITALS: BP 135/91
--- NOTE | 2019-04-11 12:00 | NUR ---
DR GASTELUM NOTIFIED OF CONSULT
[2019-04-11 13:52] LABS: ALANINE AMINOTRANSFERASE 109 U/L (0-55); ALBUMIN 2.7 GM/DL (3.2-4.5); ALKALINE PHOSPHATASE 111 U/L (40-136); AMYLASE 280 U/L (25-125); BILIRUBIN,TOTAL 3.5 MG/DL (0.1-1.0); BUN/CREATININE RATIO 4; CALCIUM 7.2 MG/DL (8.5-10.1); CARBON DIOXIDE 26 MMOL/L (21-32); CHLORIDE 99 MMOL/L (98-107); CREATININE SERUM 0.72 MG/DL (0.60-1.30); GFR ESTIMATED > 60; GLUCOSE 153 MG/DL (70-105); LIPASE 947 U/L (8-78); POTASSIUM 3.7 MMOL/L (3.6-5.0); SODIUM 133 MMOL/L (135-145); TOTAL PROTEIN 5.3 GM/DL (6.4-8.2)
[2019-04-11] MEDS ORDERED: ONDANSETRON 4 MG (ZOFRAN) ORAL DISSOLVE TAB PO PRN (14:45)
[2019-04-11 14:57] LABS: MAGNESIUM 1.5 MG/DL (1.6-2.4); PHOSPHORUS 1.8 MG/DL (2.3-4.7)
[2019-04-11] MEDS: LACTATED RINGERS 1,000 ML IV SCH ×2 (15:23→23:27)
--- NOTE | 2019-04-11 15:42 | Consultation - Hospitalist ---
HPI History of Present Illness: HPI/Chief Complaint Cecy Neal is a 34yoM with no significant past medical history who presented with abdominal pain and was admitted with pancreatitis. He reports that it started in the epigastric region and radiated superiorly and through to his back. He reports dyspnea. He reports nausea. He denies fevers and chills. He has never had pancreatitis before. His brother had pancreatitis once. He does not drink alcohol every day. His last drink was three days before the pain began. He is a daily smoker. He denies illicit drug use. He does not take any medications daily. Hospital medicine has been consulted for medical management. Source: patient Exam Limitations: no limitations Date Seen 04/11/19 Attending Physician Dario Barrios MD PCP No,Local Physician Referring Physician Date of Admission Apr 10, 2019 at 15:18 Home Medications & Allergies Home Medications Reviewed patient Home Medication Reconciliation performed by pharmacy medication reconciliations automotive service technician and/or nursing. Patients Allergies have been reviewed. Allergies Allergies Coded Allergies No Known Drug Allergies (Harousvoha14/26/18) Past Rritogg-Sxfrid-Wlmktw Hx Past Med/Social Hx: Reviewed Nursing Past Med/Soc Hx Patient Social History Alcohol Use: Rarely Uses Number of Drinks Today: AA Alcohol Beverage of Choice: Beer Recreational Drug Use: No Smoking Status: Current Everyday Smoker Type Used: Cigarettes 2nd Hand Smoke Exposure: No Recent Foreign Travel: No Contact w/other who traveled: No Recent Hopitalizations: No Recent Infectious Disease Expo: No Immunizations Up To Date Tetanus Booster (TDap): Less than 5yrs Seasonal Allergies Seasonal Allergies: No Past Medical History Reproductive: No Sexually Transmitted Disease: No HIV/AIDS: No Loss of Vision: Denies Hearing Impairment: Denies History of Blood Disorders: No Adverse Reaction to Blood Duarte: No (N/A) Family History Reviewed Nursing Family Hx Review of Systems Constitutional: no symptoms reported EENTM: no symptoms reported Respiratory: no symptoms reported Cardiovascular: no symptoms reported Gastrointestinal: abdominal pain Genitourinary: no symptoms reported Musculoskeletal: back pain Skin: no symptoms reported Psychiatric/Neurological: No Symptoms Reported Physical Exam Physical Exam Vital Signs Vital Signs - First Documented 04/10/19 04/10/19 13:02 17:24 Temp 36.2 Pulse 73 Resp 16 B/P (MAP) 144/90 (108) Pulse Ox 100 O2 Delivery Room Air Capillary Refill : Less Than 3 Seconds Height, Weight, BMI Height: 5'9.00" Weight: 190lbs. 0oz. [id number]; 26.50 BMI Method:Stated General Appearance: No Apparent Distress, WD/WN HEENT: PERRL/EOMI, Pharynx Normal Neck: Normal Inspection, Supple Respiratory: Lungs Clear, Normal Breath Sounds, No Respiratory Distress Cardiovascular: Regular Rate, Rhythm, No Edema, No Murmur Gastrointestinal: Normal Bowel Sounds, Soft; No Distended, No Guarding; Tenderness Extremity: Normal Inspection, Non Tender, No Pedal Edema Neurologic/Psychiatric: Alert, Oriented x3, No Motor/Sensory Deficits, Normal Mood/Affect Skin: Normal Color, Warm/Dry, Other (Multiple tattoos over upper torso and upper extremities.) Lymphatic: No Adenopathy Results Results/Procedures Labs Laboratory Tests 04/10/19 13:10 04/10/19 14:37 04/10/19 21:10 04/11/19 04:55 04/11/19 13:25 Patient resulted labs reviewed. Imaging: Reviewed Imaging Report Assessment/Plan Assessment and Plan Assess & Plan/Chief Complaint Acute pancreatitis Mixed hepatocellular/cholestatic hepatitis -Epigastric pain with elevated pancreatic enzymes and CT evidence of pancreatitis -LFTs ~200 on admission, trending down -T bili 3.5, stable -Gallbladder ultrasound without stones -Add triglyceride level -NPO -Transition IV fluids to LR -Pain regimen ordered -Surgery primary, planning for lap contreras once stabilized Thrombocytopenia -Plt 114, continue to monitor Hyponatremia -Na 133, mild, continue to monitor Tobacco abuse -Nicotine patch available -Nicotine gum and lozenges offered Diagnosis/Problems Diagnosis/Problems (1) Acute pancreatitis without infection or necrosis Status: Acute Qualifiers: Pancreatitis type: unspecified pancreatitis type Qualified Codes: K85.90 - Acute pancreatitis without necrosis or infection, unspecified (2) Hepatitis Status: Acute (3) Thrombocytopenia Status: Acute (4) Nicotine dependence, cigarettes, with withdrawal Status: Acute Clinical Quality Measures DVT/VTE Risk/Contraindication: Risk Factor Score Per Nursin RFS Level Per Nursing on Admit: 1=Low/No VTE PPX ALISON GASTELUM MD Apr 11, 2019 15:42 POS
[2019-04-11] MEDS ORDERED: NICOTINE 2 MG LOZENGE (COMMIT) MM PRN (15:45)
[2019-04-11 16:03] VITALS: BP 120/88
[2019-04-11 20:31] VITALS: BP 119/85
[2019-04-11 21:35] LABS: ALANINE AMINOTRANSFERASE 98 U/L (0-55); ALBUMIN 2.7 GM/DL (3.2-4.5); ALKALINE PHOSPHATASE 105 U/L (40-136); AMYLASE 226 U/L (25-125); BILIRUBIN,TOTAL 3.6 MG/DL (0.1-1.0); BUN/CREATININE RATIO 6; CALCIUM 7.4 MG/DL (8.5-10.1); CARBON DIOXIDE 26 MMOL/L (21-32); CHLORIDE 100 MMOL/L (98-107); CREATININE SERUM 0.72 MG/DL (0.60-1.30); GFR ESTIMATED > 60; GLUCOSE 98 MG/DL (70-105); LIPASE 726 U/L (8-78); POTASSIUM 3.7 MMOL/L (3.6-5.0); SODIUM 134 MMOL/L (135-145); TOTAL PROTEIN 5.4 GM/DL (6.4-8.2)
[2019-04-12] VITALS (7 sets, daily range): BP systolic 128–149; BP diastolic 84–93
[2019-04-12] MEDS: HYDROcodone/APAP 7.5 MG/325 MG (LORTAB, LORCET PLUS) TABLET PO PRN ×3 (00:26→15:59)
[2019-04-12 06:09] LABS: ALANINE AMINOTRANSFERASE 83 U/L (0-55); ALBUMIN 2.6 GM/DL (3.2-4.5); ALKALINE PHOSPHATASE 94 U/L (40-136); AMYLASE 182 U/L (25-125); BILIRUBIN,TOTAL 3.5 MG/DL (0.1-1.0); BUN/CREATININE RATIO 6; CALCIUM 7.4 MG/DL (8.5-10.1); CARBON DIOXIDE 24 MMOL/L (21-32); CHLORIDE 99 MMOL/L (98-107); CREATININE SERUM 0.64 MG/DL (0.60-1.30); GFR ESTIMATED > 60; GLUCOSE 72 MG/DL (70-105); LIPASE 490 U/L (8-78); POTASSIUM 3.5 MMOL/L (3.6-5.0); SODIUM 133 MMOL/L (135-145); TOTAL PROTEIN 5.2 GM/DL (6.4-8.2)
[2019-04-12] MEDS: PANTOPRAZOLE 40 MG (PROTONIX) VIAL IV SCH ×2 (06:45→16:00)
[2019-04-12] MEDS ORDERED: POTASSIUM PHOSPHATE INJ 15 MM in NS (IVPB) 250 ML IV ONE (06:45)
[2019-04-12 06:52] LABS: HEMOGLOBIN 13.2 G/DL (13.3-17.7); MEAN PLATELET VOLUME 11.4 FL (7.4-10.4); RED CELL DISTRIBUTION WIDTH 14.4 % (10.0-14.5)
[2019-04-12] MEDS: POTASSIUM CL 10MEQ/50ML IVPB 50 ML IV SCH ×2 (07:33→09:47)
[2019-04-12] MEDS: LACTATED RINGERS 1,000 ML IV SCH ×3 (07:33→19:48)
[2019-04-12] MEDS: NICOTINE 21 MG (NICODERM) PATCH TD SCH (09:10)
[2019-04-12] MEDS: PATCH REMOVAL TP SCH (09:11)
[2019-04-12] MEDS: MAGNESIUM 1 GM/100 ML IVPB 100 ML IV SCH ×3 (09:47→12:17)
--- NOTE | 2019-04-12 10:22 | Progress Note ---
Subjective Date Seen by a Provider: Apr 12, 2019 Time Seen by a Provider: 10:05 Subjective/Events-last exam Patient seen with Dr. Barrios. Patient reports doing better and abdominal pain much improved. No N/V. No F/C. Tolerating liquid diet. Ambulating some. Objective Exam Vital Signs Date Time Temp Pulse Resp B/P (MAP) Pulse Ox O2 Delivery O2 Flow Rate FiO2 04/12/19 08:14 37.6 93 18 128/89 (102) 98 Room Air 04/12/19 07:00 91 04/12/19 04:00 37.0 95 18 128/84 (99) 96 Room Air 04/12/19 00:38 97 04/12/19 00:00 37.0 96 16 130/84 (99) 99 Room Air 04/11/19 20:31 36.6 97 20 119/85 (96) 95 Room Air 04/11/19 20:10 Room Air 04/11/19 18:50 94 04/11/19 16:03 36.8 100 16 120/88 (99) 94 Room Air 04/11/19 12:23 100 04/11/19 11:03 36.7 95 20 135/91 (106) 96 Room Air I & O 04/12/19 07:00 Intake Total 2950 ml Balance 2950 ml Capillary Refill : Less Than 3 Seconds General Appearance: No Apparent Distress, WD/WN Neck: Full Range of Motion, Normal Inspection, Supple Respiratory: Normal Breath Sounds, No Accessory Muscle Use, No Respiratory Distress Cardiovascular: Regular Rate, Rhythm, No Murmur Gastrointestinal: normal bowel sounds, soft, tenderness (Upper abdomen) Extremity: Normal Capillary Refill, Normal Inspection, Normal Range of Motion Neurologic/Psychiatric: Alert, Oriented x3 Skin: Normal Color, Warm/Dry, Other (Multiple tattoos over upper torso and extremities) Results Lab Laboratory Tests 04/11/19 13:25: Sodium Level 133L, Potassium Level 3.7, Chloride Level 99, Carbon Dioxide Level 26, Anion Gap 8, Blood Urea Nitrogen 3L, Creatinine 0.72, Estimat Glomerular Filtration Rate > 60, BUN/Creatinine Ratio 4, Glucose Level 153H, Calcium Level 7.2L, Corrected Calcium 8.2L, Phosphorus Level 1.8L, Magnesium Level 1.5L, Total Bilirubin 3.5H, Aspartate Amino Transf (AST/SGOT) 121H, Alanine Aminotransferase (ALT/SGPT) 109H, Alkaline Phosphatase 111, Total Protein 5.3L, Albumin 2.7L, Triglycerides Level 234H, Amylase Level 280H, Lipase 947H 04/11/19 21:09: Sodium Level 134L, Potassium Level 3.7, Chloride Level 100, Carbon Dioxide Level 26, Anion Gap 8, Blood Urea Nitrogen 4L, Creatinine 0.72, Estimat Glomerular Filtration Rate > 60, BUN/Creatinine Ratio 6, Glucose Level 98, Calcium Level 7.4L, Corrected Calcium 8.4L, Total Bilirubin 3.6H, Aspartate Amino Transf (AST/SGOT) 102H, Alanine Aminotransferase (ALT/SGPT) 98H, Alkaline Phosphatase 105, Total Protein 5.4L, Albumin 2.7L, Amylase Level 226H, Lipase 726H 04/12/19 04:57: Sodium Level 133L, Potassium Level 3.5L, Chloride Level 99, Carbon Dioxide Level 24, Anion Gap 10, Blood Urea Nitrogen 4L, Creatinine 0.64, Estimat Glomerular Filtration Rate > 60, BUN/Creatinine Ratio 6, Glucose Level 72, Calcium Level 7.4L, Corrected Calcium 8.5, Total Bilirubin 3.5H, Aspartate Amino Transf (AST/SGOT) 83H, Alanine Aminotransferase (ALT/SGPT) 83H, Alkaline Phosphatase 94, Total Protein 5.2L, Albumin 2.6L, Amylase Level 182H, Lipase 490H, White Blood Count 8.0, Red Blood Count 3.89L, Hemoglobin 13.2L, Hematocrit 38L, Mean Corpuscular Volume 98, Mean Corpuscular Hemoglobin 34, Mean Corpuscular Hemoglobin Concent 35, Red Cell Distribution Width 14.4, Platelet Count 94L, Mean Platelet Volume 11.4H Assessment/Plan Assessment/Plan Assess & Plan/Chief Complaint A 34 year old male with acute pancreatitis VSS Amylase, lipase, and total bilirubin still elevated, will continue to monitor labs. IV fluids, pain, and nausea meds. Clear liquid diet. Ambulation May use nicotine patch for patient if he agrees. Clinical Quality Measures DVT/VTE Risk/Contraindication: Risk Factor Score Per Nursin RFS Level Per Nursing on Admit: 1=Low/No VTE PPX TAPAN SCANLON APRN Apr 12, 2019 10:22 POS
--- NOTE | 2019-04-12 10:43 | Progress Note - Hospitalist ---
Subjective HPI/CC On Admission Date Seen by Provider: Apr 12, 2019 Time Seen by Provider: 08:45 Cecy Neal is a 34yoM with no significant past medical history who presented with abdominal pain and was admitted with pancreatitis. He reports that it started in the epigastric region and radiated superiorly and through to his back. He reports dyspnea. He reports nausea. He denies fevers and chills. He has never had pancreatitis before. His brother had pancreatitis once. He does not drink alcohol every day. His last drink was three days before the pain began. He is a daily smoker. He denies illicit drug use. He does not take any medications daily. Hospital medicine has been consulted for medical management. Subjective/Events-last exam He reports improvement in his abdominal pain though it is still present. He denies fevers and chills. He denies nausea and vomiting. He denies diarrhea. He denies chest pain and dyspnea. Objective Exam Vital Signs Vital Signs Date Time Temp Pulse Resp B/P (MAP) Pulse Ox O2 Delivery O2 Flow Rate FiO2 04/12/19 08:14 37.6 93 18 128/89 (102) 98 Room Air Capillary Refill : Less Than 3 Seconds General Appearance: No Apparent Distress, WD/WN HEENT: PERRL/EOMI, Pharynx Normal Neck: Normal Inspection, Supple Respiratory: Lungs Clear, Normal Breath Sounds, No Respiratory Distress Cardiovascular: Regular Rate, Rhythm, No Edema, No Murmur Gastrointestinal: Normal Bowel Sounds, Soft, Tenderness (epigastric and left > right) Extremity: Normal Inspection, Non Tender, No Pedal Edema Neurologic/Psychiatric: Alert, Oriented x3, No Motor/Sensory Deficits, Normal Mood/Affect Results/Procedures Lab Laboratory Tests 04/11/19 13:25 04/11/19 21:09 04/12/19 04:57 Patient resulted labs reviewed. Imaging: Reviewed Imaging Report Assessment/Plan Assessment and Plan Assess & Plan/Chief Complaint Acute pancreatitis Mixed hepatocellular/cholestatic hepatitis -Epigastric pain with elevated pancreatic enzymes and CT evidence of pancreatitis -LFTs ~200 on admission, trending down -T bili stable -Gallbladder ultrasound without stones -Triglycerides mildly elevated, likely not contributing -NPO -Continue IV fluids -Pain regimen ordered -Surgery primary, planning for lap contreras once stabilized Thrombocytopenia -Mildly decreased -Continue to monitor Hyponatremia Hypokalemia Hypomagnesemia Hypophosphatemia -Monitor and replace electrolytes as needed Tobacco abuse -Nicotine patch available -Nicotine gum and lozenges offered Diagnosis/Problems Diagnosis/Problems (1) Acute pancreatitis without infection or necrosis Status: Acute Qualifiers: Pancreatitis type: unspecified pancreatitis type Qualified Codes: K85.90 - Acute pancreatitis without necrosis or infection, unspecified (2) Hepatitis Status: Acute (3) Thrombocytopenia Status: Acute (4) Nicotine dependence, cigarettes, with withdrawal Status: Acute Clinical Quality Measures DVT/VTE Risk/Contraindication: Risk Factor Score Per Nursin RFS Level Per Nursing on Admit: 1=Low/No VTE PPX ALISON GASTELUM MD Apr 12, 2019 10:43 POS
[2019-04-12] MEDS: fentaNYL INJECTION 100 MCG/2 ML AMP IVP PRN ×2 (10:57→20:35)
--- NOTE | 2019-04-12 10:58 | NUR ---
Pt c/o pain 10/10 to abdomen and back, bp 159/89 o2 sats 94% on ra HR 104. Will monitor.
--- NOTE | 2019-04-12 22:57 | NUR ---
pt requesting to take the tele pack off and to have the iv fluids converted to a sl
--- NOTE | 2019-04-12 22:58 | NUR ---
dr yap notified ordered given to dc tele and fluids
[2019-04-13 06:15] LABS: HEMOGLOBIN 12.3 G/DL (13.3-17.7); MEAN PLATELET VOLUME 11.1 FL (7.4-10.4); WHITE BLOOD COUNT 9.1 10^3/uL (4.3-11.0)
[2019-04-13 06:30] LABS: ALANINE AMINOTRANSFERASE 102 U/L (0-55); ALBUMIN 2.9 GM/DL (3.2-4.5); ALKALINE PHOSPHATASE 118 U/L (40-136); AMYLASE 135 U/L (25-125); BILIRUBIN,TOTAL 4.2 MG/DL (0.1-1.0); BUN/CREATININE RATIO 5; CARBON DIOXIDE 23 MMOL/L (21-32); CHLORIDE 96 MMOL/L (98-107); GFR ESTIMATED > 60; GLUCOSE 80 MG/DL (70-105); LIPASE 238 U/L (8-78); POTASSIUM 3.9 MMOL/L (3.6-5.0); SODIUM 131 MMOL/L (135-145); TOTAL PROTEIN 5.6 GM/DL (6.4-8.2)
[2019-04-13] MEDS: PANTOPRAZOLE 40 MG (PROTONIX) VIAL IV SCH ×2 (07:00→17:10)
[2019-04-13 08:00] VITALS: BP 143/89
[2019-04-13] MEDS: PATCH REMOVAL TP SCH (09:18)
[2019-04-13] MEDS: NICOTINE 21 MG (NICODERM) PATCH TD SCH (09:18)
--- NOTE | 2019-04-13 10:07 | Progress Note ---
Subjective Date Seen by a Provider: Apr 13, 2019 Time Seen by a Provider: 09:45 Subjective/Events-last exam Patient seen with Dr. Barrios. Patient reports continues to improve. Minimal abdominal pain. Tolerating clear liquid diet. No F/C. No N/V. Having BMs. Objective Exam Vital Signs Date Time Temp Pulse Resp B/P (MAP) Pulse Ox O2 Delivery O2 Flow Rate FiO2 04/12/19 23:45 37.0 100 20 149/93 (111) 96 Room Air 04/12/19 20:25 37.0 101 20 142/92 (109) 96 Room Air 04/12/19 19:45 95 Room Air 04/12/19 18:41 101 04/12/19 16:34 37.0 101 20 143/91 (108) 95 Room Air 04/12/19 13:00 103 04/12/19 12:00 37.7 98 18 134/93 (107) 94 Room Air I & O 04/13/19 07:00 Intake Total 2125 ml Output Total 1400 ml Balance 725 ml Capillary Refill : Less Than 3 SecondsLess Than 3 Seconds General Appearance: No Apparent Distress, WD/WN Neck: Full Range of Motion, Normal Inspection, Supple Respiratory: Normal Breath Sounds, No Accessory Muscle Use, No Respiratory Distress Cardiovascular: Regular Rate, Rhythm, No Murmur Gastrointestinal: normal bowel sounds, non tender, soft Extremity: Normal Capillary Refill, Normal Inspection, Normal Range of Motion Neurologic/Psychiatric: Alert, Oriented x3 Skin: Normal Color, Warm/Dry; No Jaundice Results Lab Laboratory Tests 04/13/19 05:37: White Blood Count 9.1, Red Blood Count 3.64L, Hemoglobin 12.3L, Hematocrit 35L, Mean Corpuscular Volume 97, Mean Corpuscular Hemoglobin 34, Mean Corpuscular Hemoglobin Concent 35, Red Cell Distribution Width 14.0, Platelet Count 136, Mean Platelet Volume 11.1H, Sodium Level 131L, Potassium Level 3.9, Chloride Level 96L, Carbon Dioxide Level 23, Anion Gap 12, Blood Urea Nitrogen 3L, Creatinine 0.60, Estimat Glomerular Filtration Rate > 60, BUN/Creatinine Ratio 5, Glucose Level 80, Calcium Level 8.0L, Corrected Calcium 8.9, Total Bilirubin 4.2H, Aspartate Amino Transf (AST/SGOT) 119H, Alanine Aminotransferase (ALT/SGPT) 102H, Alkaline Phosphatase 118, Total Protein 5.6L, Albumin 2.9L, Amylase Level 135H, Lipase 238H Assessment/Plan Assessment/Plan Assess & Plan/Chief Complaint A 34 year old male with acute pancreatitis VSS Amylase 135, lipase 238, and total bilirubin 4.5, will check hepatitis panel and continue to monitor labs. Pain and Nausea medications as needed. Clear liquid diet. Ambulation May use nicotine patch for patient if he agrees. Clinical Quality Measures DVT/VTE Risk/Contraindication: Risk Factor Score Per Nursin RFS Level Per Nursing on Admit: 1=Low/No VTE PPX TAPAN SCANLON PROCUREMENT INTERN Apr 13, 2019 10:07 POS
[2019-04-13 13:45] LABS: ALANINE AMINOTRANSFERASE 102 U/L (0-55); ALKALINE PHOSPHATASE 128 U/L (40-136); AMYLASE 122 U/L (25-125); BILIRUBIN,TOTAL 3.8 MG/DL (0.1-1.0); BUN/CREATININE RATIO 5; CALCIUM 8.2 MG/DL (8.5-10.1); CARBON DIOXIDE 23 MMOL/L (21-32); CHLORIDE 94 MMOL/L (98-107); CREATININE SERUM 0.61 MG/DL (0.60-1.30); GFR ESTIMATED > 60; GLUCOSE 85 MG/DL (70-105); LIPASE 211 U/L (8-78); POTASSIUM 4.4 MMOL/L (3.6-5.0); SODIUM 131 MMOL/L (135-145); TOTAL PROTEIN 5.8 GM/DL (6.4-8.2)
[2019-04-13] MEDS: HYDROcodone/APAP 7.5 MG/325 MG (LORTAB, LORCET PLUS) TABLET PO PRN ×2 (14:39→21:16)
[2019-04-13 16:51] VITALS: BP 145/98
[2019-04-13 20:33] LABS: ALANINE AMINOTRANSFERASE 109 U/L (0-55); ALBUMIN 2.9 GM/DL (3.2-4.5); ALKALINE PHOSPHATASE 134 U/L (40-136); AMYLASE 120 U/L (25-125); BILIRUBIN,TOTAL 3.6 MG/DL (0.1-1.0); BUN/CREATININE RATIO 6; CALCIUM 8.3 MG/DL (8.5-10.1); CARBON DIOXIDE 24 MMOL/L (21-32); CHLORIDE 96 MMOL/L (98-107); CREATININE SERUM 0.67 MG/DL (0.60-1.30); GFR ESTIMATED > 60; GLUCOSE 120 MG/DL (70-105); LIPASE 192 U/L (8-78); POTASSIUM 3.7 MMOL/L (3.6-5.0); SODIUM 131 MMOL/L (135-145); TOTAL PROTEIN 5.7 GM/DL (6.4-8.2)
[2019-04-14] VITALS: BP 152/92
[2019-04-14 05:45] LABS: ALANINE AMINOTRANSFERASE 110 U/L (0-55); ALKALINE PHOSPHATASE 134 U/L (40-136); AMYLASE 135 U/L (25-125); BILIRUBIN,TOTAL 3.3 MG/DL (0.1-1.0); BUN/CREATININE RATIO 6; CALCIUM 8.5 MG/DL (8.5-10.1); CARBON DIOXIDE 27 MMOL/L (21-32); CHLORIDE 96 MMOL/L (98-107); CREATININE SERUM 0.65 MG/DL (0.60-1.30); GFR ESTIMATED > 60; GLUCOSE 151 MG/DL (70-105); LIPASE 255 U/L (8-78); POTASSIUM 3.7 MMOL/L (3.6-5.0); SODIUM 132 MMOL/L (135-145)
[2019-04-14 08:00] VITALS: BP 146/95
[2019-04-14] MEDS: PANTOPRAZOLE 40 MG (PROTONIX) VIAL IV SCH ×2 (08:17→16:11)
[2019-04-14] MEDS: NICOTINE 21 MG (NICODERM) PATCH TD SCH (08:17)
[2019-04-14] MEDS: PATCH REMOVAL TP SCH (08:17)
--- NOTE | 2019-04-14 08:20 | NUR ---
This RN did not administer 0700 protonix. patient told this RN that lieutenant shift supervisor RN already gave the medication right before 0700. Med documentation was not done by previous shift
[2019-04-14 12:50] LABS: HEPATITIS C ANTIBODY C Non-Reactive (Non-Reactive)
--- NOTE | 2019-04-14 13:24 | NUR ---
"RD ASSESSMENT PMHx: no significant PMH; current diagnosis of acute pancreatitis PT INTERACTION: Pt was awake and pleasant during nutrition assessment. Pt states current appetite is poor and has been this way for 6d. Note pt avg PO intake of <25% x3d, per chart review. Pt states following a regular diet at home, and currently has no issues with chewing/swallowing food. Pt states episodes of n/v/c/d over the last 6d. Note last BM was 04/13, and pt not currently on bowel regimen, per chart review. Pt states wt typically fluctuates +/- 15#. Note 13# wt loss x7w, per chart review. This is significant wt loss at 7%. Upon visual exam, pt appears to adequately nourished with no visible signs of muscle/fat wasting, and with a BMI of 26.5. Given pt's poor PO intake and recent wt loss, pt meets criteria for acute malnutrition per ASPEN guidelines. ABNORMAL NUTRITION-RELATED LAB VALUES LOW: Na 132; Cl 96; BUN 4; Pro 6.0; alb 3.0 HIGH: glu 151; bili 3.3; AST 113; ALT 110; amylase 135; lipase 225 Est. kcal needs: 5590-5694 kcal | 20-25 kcal/kg Est. Pro needs: 64-80 g Pro | 0.8-1.0 g Pro/kg PES STATEMENT: Inadequate oral intake (NI-2.1) related to nausea | vomiting | loss of appetite as evidenced by pt interview | avg PO intake <25% x3d INTERVENTION: Continue with current diet order of Clear Liquid diet. Advance diet as tolerated and as medically able. Add Ensure Clear (vary) to meals TID. Providers 240 kcal and 8 g Pro per serving. Will continue to follow and reassess as pt needs and status change. MONITOR/EVALUATE: PO Intake; Plan of Care; Hydration Status; Weight Status; Lab Values Tarsha Funes, MS, RD, LD"
[2019-04-14 13:42] LABS: ALANINE AMINOTRANSFERASE 111 U/L (0-55); ALBUMIN 3.1 GM/DL (3.2-4.5); ALKALINE PHOSPHATASE 135 U/L (40-136); AMYLASE 145 U/L (25-125); BILIRUBIN,TOTAL 2.9 MG/DL (0.1-1.0); BUN/CREATININE RATIO 5; CALCIUM 8.5 MG/DL (8.5-10.1); CARBON DIOXIDE 28 MMOL/L (21-32); CHLORIDE 95 MMOL/L (98-107); CREATININE SERUM 0.61 MG/DL (0.60-1.30); GFR ESTIMATED > 60; GLUCOSE 113 MG/DL (70-105); LIPASE 265 U/L (8-78); POTASSIUM 3.4 MMOL/L (3.6-5.0); SODIUM 129 MMOL/L (135-145); TOTAL PROTEIN 6.1 GM/DL (6.4-8.2)
--- NOTE | 2019-04-14 16:06 | NUR ---
Initial visit: Met with the pt in the hallway. He shared that he is struggling emotionally and physically, but trying to 'tough his way through' the situation. I offered empathic listening and validated pt's positive coping as he shared the power of reflecting on how far he has come in his healing process.
[2019-04-14] MEDS: HYDROcodone/APAP 7.5 MG/325 MG (LORTAB, LORCET PLUS) TABLET PO PRN (16:13)
[2019-04-14 16:35] VITALS: BP 155/96
--- NOTE | 2019-04-14 16:48 | Progress Note ---
Subjective Date Seen by a Provider: Apr 14, 2019 Time Seen by a Provider: 14:50 Subjective/Events-last exam Patient seen with Dr. Barrios. Patient reports doing well. Still has occasional episodes of abdominal tenderness/pain. No N/V. No F/C. He does report some hallucinations the last few nights. Tolerating clear liquid diet. Objective Exam Vital Signs Date Time Temp Pulse Resp B/P (MAP) Pulse Ox O2 Delivery O2 Flow Rate FiO2 04/14/19 08:00 Room Air 04/14/19 08:00 36.8 93 20 146/95 (112) 99 Room Air 04/14/19 00:00 37.2 99 16 152/92 (112) 97 Room Air 04/13/19 20:15 98 Room Air 04/13/19 16:51 37.2 127 20 145/98 (114) 98 Room Air I & O 04/14/19 07:00 Intake Total 1380 ml Balance 1380 ml Capillary Refill : Less Than 3 SecondsLess Than 3 Seconds General Appearance: No Apparent Distress, WD/WN Neck: Full Range of Motion, Normal Inspection, Supple Respiratory: Normal Breath Sounds, No Accessory Muscle Use, No Respiratory Distress Cardiovascular: Regular Rate, Rhythm, No Murmur Gastrointestinal: normal bowel sounds, soft, tenderness (Epigastric and LUQ) Extremity: Normal Capillary Refill, Normal Inspection, Normal Range of Motion Neurologic/Psychiatric: Alert, Oriented x3 Skin: Normal Color, Warm/Dry, Tattoos/Piercings Results Lab Laboratory Tests 04/13/19 20:10: Sodium Level 131L, Potassium Level 3.7, Chloride Level 96L, Carbon Dioxide Level 24, Anion Gap 11, Blood Urea Nitrogen 4L, Creatinine 0.67, Estimat Glomerular Filtration Rate > 60, BUN/Creatinine Ratio 6, Glucose Level 120H, Calcium Level 8.3L, Corrected Calcium 9.2, Total Bilirubin 3.6H, Aspartate Amino Transf (AST/SGOT) 138H, Alanine Aminotransferase (ALT/SGPT) 109H, Alkaline Phosphatase 134, Total Protein 5.7L, Albumin 2.9L, Amylase Level 120, Lipase 192H 04/14/19 05:00: Sodium Level 132L, Potassium Level 3.7, Chloride Level 96L, Carbon Dioxide Level 27, Anion Gap 9, Blood Urea Nitrogen 4L, Creatinine 0.65, Estimat Glomerular Filtration Rate > 60, BUN/Creatinine Ratio 6, Glucose Level 151H, Calcium Level 8.5, Corrected Calcium 9.3, Total Bilirubin 3.3H, Aspartate Amino Transf (AST/SGOT) 113H, Alanine Aminotransferase (ALT/SGPT) 110H, Alkaline Phosphatase 134, Total Protein 6.0L, Albumin 3.0L, Amylase Level 135H, Lipase 255H 04/14/19 13:10: Sodium Level 129L, Potassium Level 3.4L, Chloride Level 95L, Carbon Dioxide Lev el 28, Anion Gap 6, Blood Urea Nitrogen 3L, Creatinine 0.61, Estimat Glomerular Filtration Rate > 60, BUN/Creatinine Ratio 5, Glucose Level 113H, Calcium Level 8.5, Corrected Calcium 9.2, Total Bilirubin 2.9H, Aspartate Amino Transf (AST/SGOT) 118H, Alanine Aminotransferase (ALT/SGPT) 111H, Alkaline Phosphatase 135, Total Protein 6.1L, Albumin 3.1L, Amylase Level 145H, Lipase 265H Assessment/Plan Assessment/Plan Assess & Plan/Chief Complaint A 34 year old male with acute pancreatitis VSS Amylase 145, lipase 265, and total bilirubin 2.9. Hepatitis panel negative. Continue to monitor labs. Pain and Nausea medications as needed. Clear liquid diet. Ambulation May use nicotine patch for patient if he agrees. Clinical Quality Measures DVT/VTE Risk/Contraindication: Risk Factor Score Per Nursin RFS Level Per Nursing on Admit: 1=Low/No VTE PPX TAPAN SCANLON PLATINUM AND PALLADIUM KETTLE TENDER Apr 14, 2019 16:48 POS
[2019-04-14 21:43] LABS: ALANINE AMINOTRANSFERASE 133 U/L (0-55); ALBUMIN 3.2 GM/DL (3.2-4.5); ALKALINE PHOSPHATASE 165 U/L (40-136); AMYLASE 151 U/L (25-125); BILIRUBIN,TOTAL 2.6 MG/DL (0.1-1.0); BUN/CREATININE RATIO 5; CALCIUM 8.7 MG/DL (8.5-10.1); CARBON DIOXIDE 26 MMOL/L (21-32); CHLORIDE 97 MMOL/L (98-107); CREATININE SERUM 0.64 MG/DL (0.60-1.30); GFR ESTIMATED > 60; GLUCOSE 136 MG/DL (70-105); LIPASE 267 U/L (8-78); POTASSIUM 3.5 MMOL/L (3.6-5.0); SODIUM 134 MMOL/L (135-145); TOTAL PROTEIN 6.2 GM/DL (6.4-8.2)
[2019-04-15] VITALS: BP 140/95
--- NOTE | 2019-04-15 01:40 | NUR ---
pt came into another pt room and asked about the boy who likes to talk. explain not sure who he was talking about and would be out to speak with him in a few minutes.
--- NOTE | 2019-04-15 01:50 | NUR ---
pt not in room, pt not walking in halls on floor. was calling outside machinist supervisor when pt returned to floor.
--- NOTE | 2019-04-15 02:00 | NUR ---
Pt returned to floor, pt states he was sorry for outburst earlier. pt states that he is having vivid dreams and when wakes up they are still going for a short period. states that he is unsure why but can see and hear people and within 5 to 10 minutes they are gone. voices fear on being place on restraints on physic pond, Attempted to calm pt fears by explaining that with electrolyte imbalance and liver enzymes high that hallucinations can happen
[2019-04-15 06:49] LABS: ALANINE AMINOTRANSFERASE 117 U/L (0-55); ALBUMIN 3.1 GM/DL (3.2-4.5); ALKALINE PHOSPHATASE 149 U/L (40-136); AMYLASE 138 U/L (25-125); BILIRUBIN,TOTAL 2.2 MG/DL (0.1-1.0); BUN/CREATININE RATIO 7; CALCIUM 8.5 MG/DL (8.5-10.1); CARBON DIOXIDE 24 MMOL/L (21-32); CHLORIDE 97 MMOL/L (98-107); CREATININE SERUM 0.58 MG/DL (0.60-1.30); GFR ESTIMATED > 60; GLUCOSE 113 MG/DL (70-105); LIPASE 216 U/L (8-78); POTASSIUM 3.3 MMOL/L (3.6-5.0); SODIUM 133 MMOL/L (135-145); TOTAL PROTEIN 5.9 GM/DL (6.4-8.2)
[2019-04-15] MEDS ORDERED: 1/2 NS IV SOLUTION 1,000 ML IV PRN (07:25)
[2019-04-15] MEDS ORDERED: THIAMINE INJECTION 100 MG, FOLIC ACID INJECTION 1 MG, MAGNESIUM SULFATE 2 GM, VITAMIN M... IV SCH ×5 (07:25)
[2019-04-15] MEDS ORDERED: LORazepam INJ 2 MG/ML (ATIVAN) VIAL IV PRN (07:30)
[2019-04-15] MEDS ORDERED: ONDANSETRON 4 MG (ZOFRAN) ORAL DISSOLVE TAB SL PRN (07:30)
[2019-04-15] MEDS ORDERED: D5 1/2 NS 1000 ML IV SOLUTION 1,000 ML IV PRN (07:30)
[2019-04-15] MEDS ORDERED: LORazepam INJ 2 MG/ML (ATIVAN) VIAL IM/IV PRN (07:30)
[2019-04-15] MEDS ORDERED: SENNA W/DOCUSATE (SENOKOT S) TABLET PO PRN (07:30)
[2019-04-15] MEDS ORDERED: LORazepam 1 MG (ATIVAN) TAB PO PRN (07:30)
[2019-04-15] MEDS ORDERED: ANTACID SUSP 30 ML UDC (MYLANTA) PO PRN (07:30)
[2019-04-15 08:00] VITALS: BP 153/94
[2019-04-15 08:09] LABS: PROTHROMBIN TIME PATIENT 13.8 SEC (12.2-14.7)
[2019-04-15] MEDS: PANTOPRAZOLE 40 MG (PROTONIX) TAB PO SCH ×2 (08:17→20:25)
[2019-04-15] MEDS: D5 1/2 NS W/KCL 20 MEQ/L 1,000 ML IV SCH ×2 (08:17→20:25)
[2019-04-15] MEDS: NICOTINE 21 MG (NICODERM) PATCH TD SCH (09:28)
[2019-04-15] MEDS: FOLIC ACID 1 MG TAB PO SCH (09:28)
[2019-04-15] MEDS: THIAMINE INJECTION 100 MG, FOLIC ACID INJECTION 1 MG, MAGNESIUM SULFATE 2 GM, VITAMIN M... IV SCH ×5 (09:29)
[2019-04-15] MEDS: PATCH REMOVAL TP SCH (09:30)
--- NOTE | 2019-04-15 09:30 | NUR ---
Patient had no Nicotine patch on at this time.
--- NOTE | 2019-04-15 10:54 | Progress Note - Hospitalist ---
Subjective HPI/CC On Admission Date Seen by Provider: Apr 15, 2019 Time Seen by Provider: 10:53 Cecy Neal is a 34yoM with no significant past medical history who presented with abdominal pain and was admitted with pancreatitis. He reports that it started in the epigastric region and radiated superiorly and through to his back. He reports dyspnea. He reports nausea. He denies fevers and chills. He has never had pancreatitis before. His brother had pancreatitis once. He does not drink alcohol every day. His last drink was three days before the pain began. He is a daily smoker. He denies illicit drug use. He does not take any medications daily. Hospital medicine has been consulted for medical management. Subjective/Events-last exam Pt sleeping soundly. Awakes to name. Family at bed side. Overnight started to hallucinate. Family states he drinks daily but are unsure on quantity. Objective Exam Vital Signs Vital Signs Date Time Temp Pulse Resp B/P (MAP) Pulse Ox O2 Delivery O2 Flow Rate FiO2 04/16/19 09:47 100 Room Air 04/16/19 08:00 37.1 89 20 146/92 (110) Capillary Refill : Less Than 3 SecondsLess Than 3 Seconds General Appearance: No Apparent Distress, WD/WN Respiratory: Lungs Clear, No Accessory Muscle Use, No Respiratory Distress Cardiovascular: No Murmur, Normal Peripheral Pulses, Tachycardia Neurologic/Psychiatric: Alert, Other (just awoke from sleep, slightly disoriented) Skin: Tattoos/Piercings Results/Procedures Lab Laboratory Tests 04/15/19 13:39 04/15/19 21:20 04/16/19 04:40 Patient resulted labs reviewed. Imaging: Reviewed Imaging Report Assessment/Plan Assessment and Plan Assess & Plan/Chief Complaint Acute pancreatitis Mixed hepatocellular/cholestatic hepatitis - Likely due to alcohol -Gallbladder ultrasound without stones -Triglycerides mildly elevated, likely not contributing -CLD -Continue IV fluids -Pain regimen ordered -Surgery primary, Alcohol Withdrawal Alcoholic Liver Disease Thrombocytopenia - [place] protocol - Heat Set Operator consulted Hyponatremia Hypokalemia Hypomagnesemia Hypophosphatemia -Monitor and replace electrolytes as needed -Likely beer potomania Tobacco abuse -Nicotine patch available -Nicotine gum and lozenges offered Diagnosis/Problems Diagnosis/Problems (1) Acute pancreatitis without infection or necrosis Status: Acute Qualifiers: Pancreatitis type: unspecified pancreatitis type Qualified Codes: K85.90 - Acute pancreatitis without necrosis or infection, unspecified (2) Nicotine dependence, cigarettes, with withdrawal Status: Acute (3) Thrombocytopenia Status: Acute (4) Hepatitis Status: Acute (5) Acute hyponatremia Status: Acute Clinical Quality Measures DVT/VTE Risk/Contraindication: Risk Factor Score Per Nursin RFS Level Per Nursing on Admit: 1=Low/No VTE PPX KATHY CHAMBERS MD Apr 15, 2019 10:54 POS
[2019-04-15] MEDS: POTASSIUM CL 10MEQ/50ML IVPB 50 ML IV SCH ×2 (11:30→12:15)
--- NOTE | 2019-04-15 11:30 | Progress Note ---
Subjective Date Seen by a Provider: Apr 15, 2019 Time Seen by a Provider: 10:00 Subjective/Events-last exam had confusion and visual hallucinations last night consistent with ETOH withdrawal. t sheldon and pancreatic enzymes improving. Objective Exam Vital Signs Date Time Temp Pulse Resp B/P (MAP) Pulse Ox O2 Delivery O2 Flow Rate FiO2 04/15/19 08:00 Room Air 04/15/19 08:00 37.2 95 20 153/94 (113) 96 Room Air 04/15/19 00:00 37.0 104 20 140/95 (110) 95 Room Air 04/14/19 16:35 37.2 99 20 155/96 (115) 95 Room Air I & O 04/15/19 07:00 Intake Total 2220 ml Balance 2220 ml Capillary Refill : Less Than 3 SecondsLess Than 3 Seconds General Appearance: No Apparent Distress HEENT: PERRL/EOMI Neck: Full Range of Motion Respiratory: Chest Non Tender, Lungs Clear Cardiovascular: Regular Rate, Rhythm Gastrointestinal: normal bowel sounds, non tender, distended Extremity: Normal Capillary Refill Neurologic/Psychiatric: Alert Skin: Normal Color Lymphatic: No Adenopathy Results Lab Laboratory Tests 04/14/19 13:10: Sodium Level 129L, Potassium Level 3.4L, Chloride Level 95L, Carbon Dioxide Level 28, Anion Gap 6, Blood Urea Nitrogen 3L, Creatinine 0.61, Estimat Glomerular Filtration Rate > 60, BUN/Creatinine Ratio 5, Glucose Level 113H, Calcium Level 8.5, Corrected Calcium 9.2, Total Bilirubin 2.9H, Aspartate Amino Transf (AST/SGOT) 118H, Alanine Aminotransferase (ALT/SGPT) 111H, Alkaline Phosphatase 135, Total Protein 6.1L, Albumin 3.1L, Amylase Level 145H, Lipase 265H 04/14/19 21:16: Sodium Level 134L, Potassium Level 3.5L, Chloride Level 97L, Carbon Dioxide Level 26, Anion Gap 11, Blood Urea Nitrogen 3L, Creatinine 0.64, Estimat Glomerular Filtration Rate > 60, BUN/Creatinine Ratio 5, Glucose Level 136H, Calcium Level 8.7, Corrected Calcium 9.3, Total Bilirubin 2.6H, Aspartate Amino Transf (AST/SGOT) 163H, Alanine Aminotransferase (ALT/SGPT) 133H, Alkaline Phosphatase 165H, Total Protein 6.2L, Albumin 3.2, Amylase Level 151H, Lipase 267H 04/15/19 05:40: Sodium Level 133L, Potassium Level 3.3L, Chloride Level 97L, Carbon Dioxide Level 24, Anion Gap 12, Blood Urea Nitrogen 4L, Creatinine 0.58L, Estimat Glomerular Filtration Rate > 60, BUN/Creatinine Ratio 7, Glucose Level 113H, Calcium Level 8.5, Corrected Calcium 9.2, Total Bilirubin 2.2H, Aspartate Amino Transf (AST/SGOT) 107H, Alanine Aminotransferase (ALT/SGPT) 117H, Alkaline Phosphatase 149H, Total Protein 5.9L, Albumin 3.1L, Amylase Level 138H, Lipase 216H, Prothrombin Time 13.8, INR Comment 1.0, Activated Partial Thromboplast Ti me 39H, Serum Alcohol < 10 Assessment/Plan Assessment/Plan Assess & Plan/Chief Complaint 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 continue withdrawal protocol. await more bowel fxn. Clinical Quality Measures DVT/VTE Risk/Contraindication: Risk Factor Score Per Nursin RFS Level Per Nursing on Admit: 1=Low/No VTE PPX JENA RENTERIA MD Apr 15, 2019 11:30 POS
[2019-04-15 14:15] LABS: ALANINE AMINOTRANSFERASE 114 U/L (0-55); ALBUMIN 3.1 GM/DL (3.2-4.5); ALKALINE PHOSPHATASE 145 U/L (40-136); AMYLASE 130 U/L (25-125); BILIRUBIN,TOTAL 1.7 MG/DL (0.1-1.0); BUN/CREATININE RATIO 5; CALCIUM 8.4 MG/DL (8.5-10.1); CARBON DIOXIDE 27 MMOL/L (21-32); CHLORIDE 98 MMOL/L (98-107); CREATININE SERUM 0.61 MG/DL (0.60-1.30); GFR ESTIMATED > 60; GLUCOSE 155 MG/DL (70-105); LIPASE 217 U/L (8-78); POTASSIUM 3.4 MMOL/L (3.6-5.0); SODIUM 134 MMOL/L (135-145); TOTAL PROTEIN 6.1 GM/DL (6.4-8.2)
--- NOTE | 2019-04-15 14:30 | NUR ---
SS/CM - Discharge Planning DME: none Discussed lack of primary care physician, and need to identify one, he does not see that having one is a priority. Patient travels with his job and is not in [facility] - only three or four days every few weeks. Plans to obtain insurance through his employer - [employer], soon. Reports that he will stop on his own related to his alcohol use as he has been to AA in the past. Offered community resources - [facility] for substance abuse outpatient treatment. Pt seemed very matter of fact, and appeared to be shaky and having withdraw from alcohol use. No family present.
[2019-04-15 15:57] VITALS: BP 153/96
[2019-04-15] MEDS: HYDROcodone/APAP 7.5 MG/325 MG (LORTAB, LORCET PLUS) TABLET PO PRN (20:25)
[2019-04-15 22:00] LABS: ALANINE AMINOTRANSFERASE 103 U/L (0-55); ALBUMIN 3.1 GM/DL (3.2-4.5); ALKALINE PHOSPHATASE 147 U/L (40-136); AMYLASE 132 U/L (25-125); BILIRUBIN,TOTAL 1.7 MG/DL (0.1-1.0); BUN/CREATININE RATIO 5; CALCIUM 8.6 MG/DL (8.5-10.1); CARBON DIOXIDE 23 MMOL/L (21-32); CHLORIDE 101 MMOL/L (98-107); CREATININE SERUM 0.58 MG/DL (0.60-1.30); GFR ESTIMATED > 60; GLUCOSE 130 MG/DL (70-105); LIPASE 219 U/L (8-78); POTASSIUM 3.5 MMOL/L (3.6-5.0); SODIUM 135 MMOL/L (135-145)
[2019-04-16] VITALS: BP 136/94
[2019-04-16] MEDS: D5 1/2 NS W/KCL 20 MEQ/L 1,000 ML IV SCH ×2 (02:24→09:37)
[2019-04-16] MEDS: HYDROcodone/APAP 7.5 MG/325 MG (LORTAB, LORCET PLUS) TABLET PO PRN (02:32)
[2019-04-16] MEDS: PANTOPRAZOLE 40 MG (PROTONIX) TAB PO SCH (05:28)
[2019-04-16 05:41] LABS: ALANINE AMINOTRANSFERASE 107 U/L (0-55); ALBUMIN 2.9 GM/DL (3.2-4.5); ALKALINE PHOSPHATASE 166 U/L (40-136); AMYLASE 121 U/L (25-125); BILIRUBIN,TOTAL 1.4 MG/DL (0.1-1.0); BUN/CREATININE RATIO 5; CALCIUM 8.5 MG/DL (8.5-10.1); CARBON DIOXIDE 22 MMOL/L (21-32); CHLORIDE 103 MMOL/L (98-107); CREATININE SERUM 0.57 MG/DL (0.60-1.30); GFR ESTIMATED > 60; GLUCOSE 137 MG/DL (70-105); LIPASE 193 U/L (8-78); POTASSIUM 3.4 MMOL/L (3.6-5.0); SODIUM 136 MMOL/L (135-145); TOTAL PROTEIN 5.7 GM/DL (6.4-8.2)
[2019-04-16 08:00] VITALS: BP 146/92
[2019-04-16] MEDS: PATCH REMOVAL TP SCH (09:24)
[2019-04-16] MEDS: THIAMINE INJECTION 100 MG, FOLIC ACID INJECTION 1 MG, MAGNESIUM SULFATE 2 GM, VITAMIN M... IV SCH ×5 (09:24)
[2019-04-16] MEDS: NICOTINE 21 MG (NICODERM) PATCH TD SCH ×2 (09:24→09:36)
[2019-04-16] MEDS: FOLIC ACID 1 MG TAB PO SCH (09:24)
--- NOTE | 2019-04-16 11:54 | Progress Note - Hospitalist ---
Subjective HPI/CC On Admission Date Seen by Provider: Apr 16, 2019 Time Seen by Provider: 11:52 Cecy Neal is a 34yoM with no significant past medical history who presented with abdominal pain and was admitted with pancreatitis. He reports that it started in the epigastric region and radiated superiorly and through to his back. He reports dyspnea. He reports nausea. He denies fevers and chills. He has never had pancreatitis before. His brother had pancreatitis once. He does not drink alcohol every day. His last drink was three days before the pain began. He is a daily smoker. He denies illicit drug use. He does not take any medications daily. Hospital medicine has been consulted for medical management. Subjective/Events-last exam Pt reports feeling better. No hallucinations. No tremors. Reports drinking at least a 6 pack per day and more on saturdays. Objective Exam Vital Signs Vital Signs Date Time Temp Pulse Resp B/P (MAP) Pulse Ox O2 Delivery O2 Flow Rate FiO2 04/16/19 09:47 100 Room Air 04/16/19 08:00 37.1 89 20 146/92 (110) Capillary Refill : Less Than 3 SecondsLess Than 3 Seconds General Appearance: No Apparent Distress, WD/WN Respiratory: Lungs Clear, No Accessory Muscle Use, No Respiratory Distress Cardiovascular: Regular Rate, Rhythm, No Murmur Gastrointestinal: Normal Bowel Sounds, Soft Neurologic/Psychiatric: Alert, Oriented x3 Skin: Tattoos/Piercings Results/Procedures Lab Laboratory Tests 04/15/19 13:39 04/15/19 21:20 04/16/19 04:40 Patient resulted labs reviewed. Imaging: Reviewed Imaging Report Assessment/Plan Assessment and Plan Assess & Plan/Chief Complaint Acute pancreatitis Mixed hepatocellular/cholestatic hepatitis - Likely due to alcohol -Gallbladder ultrasound without stones -Triglycerides mildly elevated, likely not contributing -CLD -Continue IV fluids -Pain regimen ordered -Surgery primary Alcohol Withdrawal Alcoholic Liver Disease Thrombocytopenia - CIWA protocol - Therapy Coordinator consulted - Patient plans to quit drinking completely, recommended outpatient resources but he declined - Ok for DC from medical point of view when okay with primary Hyponatremia Hypokalemia Hypomagnesemia Hypophosphatemia -Monitor and replace electrolytes as needed -Likely beer potomania Tobacco abuse -Nicotine patch available -Nicotine gum and lozenges offered Diagnosis/Problems Diagnosis/Problems (1) Acute pancreatitis without infection or necrosis Status: Acute Qualifiers: Pancreatitis type: unspecified pancreatitis type Qualified Codes: K85.90 - Acute pancreatitis without necrosis or infection, unspecified (2) Nicotine dependence, cigarettes, with withdrawal Status: Acute (3) Thrombocytopenia Status: Acute (4) Hepatitis Status: Acute (5) Acute hyponatremia Status: Acute Clinical Quality Measures DVT/VTE Risk/Contraindication: Risk Factor Score Per Nursin RFS Level Per Nursing on Admit: 1=Low/No VTE PPX KATHY CHAMBERS MD Apr 16, 2019 11:54 POS
[2019-04-16 13:49] LABS: ALANINE AMINOTRANSFERASE 114 U/L (0-55); ALBUMIN 3.1 GM/DL (3.2-4.5); ALKALINE PHOSPHATASE 151 U/L (40-136); AMYLASE 123 U/L (25-125); BILIRUBIN,TOTAL 1.3 MG/DL (0.1-1.0); BUN/CREATININE RATIO 5; CALCIUM 8.6 MG/DL (8.5-10.1); CARBON DIOXIDE 27 MMOL/L (21-32); CHLORIDE 100 MMOL/L (98-107); CREATININE SERUM 0.57 MG/DL (0.60-1.30); GFR ESTIMATED > 60; GLUCOSE 134 MG/DL (70-105); LIPASE 197 U/L (8-78); POTASSIUM 3.6 MMOL/L (3.6-5.0); SODIUM 132 MMOL/L (135-145); TOTAL PROTEIN 6.1 GM/DL (6.4-8.2)
[2019-04-16 16:08] VITALS: BP 146/92
--- NOTE | 2019-04-16 16:32 | Progress Note ---
Subjective Date Seen by a Provider: Apr 16, 2019 Time Seen by a Provider: 15:00 Subjective/Events-last exam doing much better. tolerating diet. having bowel fxn. labs normalizing. pain controlled. Objective Exam Vital Signs Date Time Temp Pulse Resp B/P (MAP) Pulse Ox O2 Delivery O2 Flow Rate FiO2 04/16/19 16:19 Room Air 04/16/19 16:08 37.1 89 20 146/92 100 Room Air 04/16/19 09:47 100 Room Air 04/16/19 08:00 100 Room Air 04/16/19 08:00 37.1 89 20 146/92 (110) 100 Room Air 04/16/19 00:00 37.2 90 18 136/94 (108) 97 Room Air 04/15/19 20:00 Room Air I & O 04/16/19 07:00 Intake Total 5425.2 ml Balance 5425.2 ml Capillary Refill : Less Than 3 SecondsLess Than 3 Seconds General Appearance: No Apparent Distress HEENT: PERRL/EOMI Neck: Full Range of Motion Respiratory: Chest Non Tender, Lungs Clear, Normal Breath Sounds Cardiovascular: Regular Rate, Rhythm Gastrointestinal: normal bowel sounds, soft Extremity: Normal Capillary Refill Neurologic/Psychiatric: Alert, Oriented x3 Skin: Normal Color Lymphatic: No Adenopathy Results Lab Laboratory Tests 04/15/19 17:48: Glucometer 134H 04/15/19 21:20: Sodium Level 135, Potassium Level 3.5L, Chloride Level 101, Carbon Dioxide Level 23, Anion Gap 11, Blood Urea Nitrogen 3L, Creatinine 0.58L, Estimat Glomerular Filtration Rate > 60, BUN/Creatinine Ratio 5, Glucose Level 130H, Calcium Level 8.6, Corrected Calcium 9.3, Total Bilirubin 1.7H, Aspartate Amino Transf (AST/SGOT) 83H, Alanine Aminotransferase (ALT/SGPT) 103H, Alkaline Phosphatase 147H, Total Protein 6.0L, Albumin 3.1L, Amylase Level 132H, Lipase 219H 04/16/19 00:57: Glucometer 127H 04/16/19 04:40: Sodium Level 136, Potassium Level 3.4L, Chloride Level 103, Carbon Dioxide Level 22, Anion Gap 11, Blood Urea Nitrogen 3L, Creatinine 0.57L, Estimat Glomerular Filtration Rate > 60, BUN/Creatinine Ratio 5, Glucose Level 137H, Calcium Level 8.5, Corrected Calcium 9.4, Total Bilirubin 1.4H, Aspartate Amino Transf (AST/SGOT) 102H, Alanine Aminotransferase (ALT/SGPT) 107H, Alkaline Phosphatase 166H, Total Protein 5.7L, Albumin 2.9L, Amylase Level 121, Lipase 193H 04/16/19 05:16: Glucometer 132H 04/16/19 12:22: Glucometer 153H 04/16/19 13:15: Sodium Level 132L, Potassium Level 3.6, Chloride Level 100, Carbon Dioxide Level 27, Anion Gap 5, Blood Urea Nitrogen 3L, Creatinine 0.57L, Estimat Glomerular Filtration Rate > 60, BUN/Creatinine Ratio 5, Glucose Level 134H, Calcium Level 8.6, Corrected Calcium 9.3, Total Bilirubin 1.3H, Aspartate Amino Transf (AST/SGOT) 96H, Alanine Aminotransferase (ALT/SGPT) 114H, Alkaline Phosphatase 151H, Total Protein 6.1L, Albumin 3.1L, Amylase Level 123, Lipase 197H Assessment/Plan Assessment/Plan Assess & Plan/Chief Complaint 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 continue withdrawal protocol. doing much better. low residue diet. needs to establish primary care in [place]. gave one prescription for lortab but explained will not refill. needs to proceed with ETOH abstinence. Clinical Quality Measures DVT/VTE Risk/Contraindication: Risk Factor Score Per Nursin RFS Level Per Nursing on Admit: 1=Low/No VTE PPX JENA RENTERIA MD Apr 16, 2019 16:32 POS
[2019-04-16] MEDS ORDERED: HYDR-34 PO (16:33)
--- NOTE | 2019-04-16 16:34 | Discharge Inst-Surgical ---
D/C Lap Instructions-DEXTER New, Converted, or Re-Newed RX: RX on Chart Establish and follow up with primary care [facility]. Activity as tolerated No driving for 24 hours No driving while on pain medications Incentive Spirometry use every 2 hours while awake Regular Low Fat Diet Symptoms to Report: Fever over 101 degree F, Nausea/Vomiting Infection Signs and Symptoms to report: Increased redness, Foul odor of wound, Increased drainage Bathing instructions: May shower Operative Area Clean/Dry; Keep incision clean/dry If any problems/questions: Contact your physician or go to Emergency Room JENA RENTERIA MD Apr 16, 2019 16:34 POS
[2019-04-18] MEDS ORDERED: MULTIVIT W/MINERALS TAB (THERAGRAN M) PO SCH (07:00)
[2019-04-18] MEDS ORDERED: THIAMINE 100 MG (VITAMIN B-1) TAB PO SCH (07:00)
[2019-04-18] MEDS ORDERED: MAGNESIUM OXIDE (MAG-OX)400 MG TAB PO SCH (09:00)
--- NOTE | 2019-04-30 06:52 | DISCHARGE SUMMARY ---
DATE OF SERVICE: ADMISSION DIAGNOSIS: Gallstone pancreatitis. DISCHARGE DIAGNOSES: Alcohol-induced pancreatitis and hyperbilirubinemia. OTHER DIAGNOSES: History of duodenitis, colitis. No procedures. No complications. DISPOSITION: Home in stable condition. The patient is a 34-year-old male who presented to the Emergency Department in [place] with epigastric pain, which started 1 day previous. He reported that the pain radiated towards the upper abdominal quadrant as well as towards the back. He stated that he had not had this type of symptoms before in the past. He does smoke and also does drink alcohol significantly. He also does report a history of peptic ulcer disease. He did also reported some mild nausea; however, no vomiting. A CT scan was performed, which did show potential biliary sludge and he was found to have a total bilirubin of 3.2 as well as an elevated lipase of 1015. PAST MEDICAL HISTORY: History of duodenitis, colitis. PAST SURGERIES: None. ALLERGIES: No known drug allergies. MEDICATIONS: CEPHALEXIN, LEVOFLOXACIN, ZOFRAN, HYDROCODONE. SOCIAL HISTORY: Positive for smoke. Positive for alcohol. FAMILY HISTORY: Noncontributory. The patient was admitted, started on IV fluids as well as pain medication and antinausea medication as necessary. His lab work was followed daily including examination of his abdomen. An ultrasound was also performed, which did not show any ductal dilatation as well as no stones. After further questioning, he had reported that it was discovered that he did have a significant history of alcohol consumption on a daily basis. His symptomatology and diagnosis was more consistent with alcohol-induced pancreatitis. Over the next few days, he continued to improve and his bilirubin normalized as well as his amylase and lipase. He was then slowly started on a clear liquid diet and advanced to a low fat diet over time. He was also able to ambulate well. His vital signs remained stable throughout the hospital course. He was discharged home on 04/16/2019. DISCHARGE INSTRUCTIONS: Low fat diet. Avoidance of alcoholic beverages. Resume previous home medications. No activity restrictions. He is to follow up [email or web address]. Job ID: [id number] DocumentID: [id number] Dictated Date: 04/29/2019 15:08:56 [employer] Date: 04/30/2019 06:51:57 Dictated By: JENA RENTERIA MD
--- OUTSIDE RECORDS SUMMARY | 2019-05-06 20:43 | XMS REPORT | Continuity of Care Document ---
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 Carbon dioxide 24 mmol/L 21-32 Serum or plasma anion gap determination (moles/volume) 10 mmol/L 5-14 Serum or plasma urea nitrogen measurement (mass/volume ) 4 mg/dL 7-18 Serum or plasma creatinine measurement (mass/volume) 0.64 mg/dL 0.60-1.30 Serum or plasma urea nitrogen/creatinine mass ratio 6 NRG Serum or plasma creatinine measurement w ith calculation of estimated glomerular filtration rate > NRG Serum or plasma glucose measurement (mass/volume) 72 mg/dL 70-105 Serum or plasma calcium measurement (mass/volume) 7.4 mg/dL 8.5-10.1 Serum or plasma total bilirubin measurement (mass/volu me) 3.5 mg/dL 0.1-1.0 Serum or plasma alkaline phosphatase cathi surement (enzymatic activity/volume) 94 U/L 40-136 Serum or plasma aspartate aminotransfera se measurement (enzymatic activity/volume) 83 U/L 5-34 Serum or plasma alanine aminotransferase measurement (enzymatic activity/volume) 83 U/L 0-55 Serum or plasma protein measurement (mass/volume) 5.2 g/dL 6.4-8.2 Serum or plasma albumin measurement (mass/volume) 2.6 g/dL 3.2-4.5 CALCIUM CORRECTED 8.5 mg/dL 8.5-10.1 Serum or plasma amylase measurement (enz ymatic activity/volume) - 04/12/19 04:57 Serum or plasma amylase measurement (enzymatic activit y/volume) 182 U/L 25-125 Lipase - 04/12/19 04:57 Lipase 490 U/L 878 Automated blood complete blood count (he mogram) panel - 04/12/19 04:57 Blood leukocytes automated count (number/volume) 8.0 10*3/uL 4.3-11.0 Blood erythrocytes automated count (number/volume) 3.89 10*6/uL 4.35-5.85 Venous blood hemoglobin measurement (mass/volume) 13.2 g/dL 13.3-17.7 Blood hematocrit (volume fraction) 38 % 40-54 Automated erythrocyte mean corpuscular volume 98 [ foz_us] 80-99 Automated erythrocyte mean corpuscular h emoglobin (mass per erythrocyte) 34 pg 25-34 Automated erythrocyte mean corpuscular h emoglobin concentration measurement (mass/volume) 35 g/dL 32-36 Automated erythrocyte distribution width ratio 14. 4 % 10.0- 14.5 Automated blood platelet count (count/volume) 94 1 0*3/uL 130-400 Automated blood platelet mean volume measurement 11.4 [foz_us] 7.4-10.4 Automated blood complete blood count (he mogram) panel - 04/13/19 05:37 Blood leukocytes automated count (number/volume) 9.1 10*3/uL 4.3-11.0 Blood erythrocytes automated count (number/volume) 3.64 10*6/uL 4.35-5.85 Venous blood hemoglobin measurement (mass/volume) 12.3 g/dL 13.3-17.7 Blood hematocrit (volume fraction) 35 % 40-54 Automated erythrocyte mean corpuscular volume 97 [ foz_us] 80-99 Automated erythrocyte mean corpuscular h emoglobin (mass per erythrocyte) 34 pg 25-34 Automated erythrocyte mean corpuscular h emoglobin concentration measurement (mass/volume) 35 g/dL 32-36 Automated erythrocyte distribution width ratio 14. 0 % 10.0- 14.5 Automated blood platelet count (count/volume) 136 10*3/uL 130-400 Automated blood platelet mean volume measurement 11.1 [foz_us] 7.4-10.4 Comprehensive metabolic panel - 04/13/19 05:37 Serum or plasma sodium measurement (moles/volume) 131 mmol/L 135-145 Serum or plasma potassium measurement (moles/volume) 3.9 mmol/L 3.6-5.0 Serum or plasma chloride measurement (moles/volume) 96 mmol/L 98-107 Carbon dioxide 23 mmol/L 21-32 Serum or plasma anion gap determination (moles/volume) 12 mmol/L 5-14 Serum or plasma urea nitrogen measurement (mass/volume ) 3 mg/dL 7-18 Serum or plasma creatinine measurement (mass/volume) 0.60 mg/dL 0.60-1.30 Serum or plasma urea nitrogen/creatinine mass ratio 5 NRG Serum or plasma creatinine measurement w ith calculation of estimated glomerular filtration rate > NRG Serum or plasma glucose measurement (mass/volume) 80 mg/dL 70-105 Serum or plasma calcium measurement (mass/volume) 8.0 mg/dL 8.5-10.1 Serum or plasma total bilirubin measurement (mass/volu me) 4.2 mg/dL 0.1-1.0 Serum or plasma alkaline phosphatase cathi surement (enzymatic activity/volume) 118 U/L 40-136 Serum or plasma aspartate aminotransfera se measurement (enzymatic activity/volume) 119 U/L 5-34 Serum or plasma alanine aminotransferase measurement (enzymatic activity/volume) 102 U/L 0-55 Serum or plasma protein measurement (mass/volume) 5.6 g/dL 6.4-8.2 Serum or plasma albumin measurement (mass/volume) 2.9 g/dL 3.2-4.5 CALCIUM CORRECTED 8.9 mg/dL 8.5-10.1 Serum or plasma amylase measurement (enz ymatic activity/volume) - 04/13/19 05:37 Serum or plasma amylase measurement (enzymatic activit y/volume) 135 U/L 25-125 Lipase - 04/13/19 05:37 Lipase 238 U/L 8-78 Acute hepatitis panel - 04/13/19 05:37 HEPATITIS A ANTIBODY IGM Non-Reactive N on-Reactive HEPATITIS B CORE NAOMI IGM Non-Reactive N on-Reactive Confirmatory quantitative serum or plasm a hepatitis B virus surface antigen measurement Non-Reactive Non-Reactive Serum hepatitis C virus antibody detection Non-[place] ctive Non-Reactive Comprehensive metabolic panel - 04/13/19 13:10 Serum or plasma sodium measurement (moles/volume) 131 mmol/L 135-145 Serum or plasma potassium measurement (moles/volume) 4.4 mmol/L 3.6-5.0 Serum or plasma chloride measurement (moles/volume) 94 mmol/L 98-107 Carbon dioxide 23 mmol/L 21-32 Serum or plasma anion gap determination (moles/volume) 14 mmol/L 5-14 Serum or plasma urea nitrogen measurement (mass/volume ) 3 mg/dL 7-18 Serum or plasma creatinine measurement (mass/volume) 0.61 mg/dL 0.60-1.30 Serum or plasma urea nitrogen/creatinine mass ratio 5 NRG Serum or plasma creatinine measurement w ith calculation of estimated glomerular filtration rate > NRG Serum or plasma glucose measurement (mass/volume) 85 mg/dL 70-105 Serum or plasma calcium measurement (mass/volume) 8.2 mg/dL 8.5-10.1 Serum or plasma total bilirubin measurement (mass/volu me) 3.8 mg/dL 0.1-1.0 Serum or plasma alkaline phosphatase cathi surement (enzymatic activity/volume) 128 U/L 40-136 Serum or plasma aspartate aminotransfera se measurement (enzymatic activity/volume) 112 U/L 5-34 Serum or plasma alanine aminotransferase measurement (enzymatic activity/volume) 102 U/L 0-55 Serum or plasma protein measurement (mass/volume) 5.8 g/dL 6.4-8.2 Serum or plasma albumin measurement (mass/volume) 3.0 g/dL 3.2-4.5 CALCIUM CORRECTED 9.0 mg/dL 8.5-10.1 Serum or plasma amylase measurement (enz ymatic activity/volume) - 04/13/19 13:10 Serum or plasma amylase measurement (enzymatic activit y/volume) 122 U/L 25-125 Lipase - 04/13/19 13:10 Lipase 211 U/L 8-78 Comprehensive metabolic panel - 04/13/19 20:10 Serum or plasma sodium measurement (moles/volume) 131 mmol/L 135-145 Serum or plasma potassium measurement (moles/volume) 3.7 mmol/L 3.6-5.0 Serum or plasma chloride measurement (moles/volume) 96 mmol/L 98-107 Carbon dioxide 24 mmol/L 21-32 Serum or plasma anion gap determination (moles/volume) 11 mmol/L 5-14 Serum or plasma urea nitrogen measurement (mass/volume ) 4 mg/dL 7-18 Serum or plasma creatinine measurement (mass/volume) 0.67 mg/dL 0.60-1.30 Serum or plasma urea nitrogen/creatinine mass ratio 6 NRG Serum or plasma creatinine measurement w ith calculation of estimated glomerular filtration rate > NRG Serum or plasma glucose measurement (mass/volume) 120 mg/dL 70-105 Serum or plasma calcium measurement (mass/volume) 8.3 mg/dL 8.5-10.1 Serum or plasma total bilirubin measurement (mass/volu me) 3.6 mg/dL 0.1-1.0 Serum or plasma alkaline phosphatase cathi surement (enzymatic activity/volume) 134 U/L 40-136 Serum or plasma aspartate aminotransfera se measurement (enzymatic activity/volume) 138 U/L 5-34 Serum or plasma alanine aminotransferase measurement (enzymatic activity/volume) 109 U/L 0-55 Serum or plasma protein measurement (mass/volume) 5.7 g/dL 6.4-8.2 Serum or plasma albumin measurement (mass/volume) 2.9 g/dL 3.2-4.5 CALCIUM CORRECTED 9.2 mg/dL 8.5-10.1 Serum or plasma amylase measurement (enz ymatic activity/volume) - 04/13/19 20:10 Serum or plasma amylase measurement (enzymatic activit y/volume) 120 U/L 25-125 Lipase - 04/13/19 20:10 Lipase 192 U/L 8-78 Comprehensive metabolic panel - 04/14/19 05:00 Serum or plasma sodium measurement (moles/volume) 132 mmol/L 135-145 Serum or plasma potassium measurement (moles/volume) 3.7 mmol/L 3.6-5.0 Serum or plasma chloride measurement (moles/volume) 96 mmol/L 98-107 Carbon dioxide 27 mmol/L 21-32 Serum or plasma anion gap determination (moles/volume) 9 mmol/L 5-14 Serum or plasma urea nitrogen measurement (mass/volume ) 4 mg/dL 7-18 Serum or plasma creatinine measurement (mass/volume) 0.65 mg/dL 0.60-1.30 Serum or plasma urea nitrogen/creatinine mass ratio 6 NRG Serum or plasma creatinine measurement w ith calculation of estimated glomerular filtration rate > NRG Serum or plasma glucose measurement (mass/volume) 151 mg/dL 70-105 Serum or plasma calcium measurement (mass/volume) 8.5 mg/dL 8.5-10.1 Serum or plasma total bilirubin measurement (mass/volu me) 3.3 mg/dL 0.1-1.0 Serum or plasma alkaline phosphatase cathi surement (enzymatic activity/volume) 134 U/L 40-136 Serum or plasma aspartate aminotransfera se measurement (enzymatic activity/volume) 113 U/L 5-34 Serum or plasma alanine aminotransferase measurement (enzymatic activity/volume) 110 U/L 0-55 Serum or plasma protein measurement (mass/volume) 6.0 g/dL 6.4-8.2 Serum or plasma albumin measurement (mass/volume) 3.0 g/dL 3.2-4.5 CALCIUM CORRECTED 9.3 mg/dL 8.5-10.1 Serum or plasma amylase measurement (enz ymatic activity/volume) - 04/14/19 05:00 Serum or plasma amylase measurement (enzymatic activit y/volume) 135 U/L 25-125 Lipase - 04/14/19 05:00 Lipase 255 U/L 8-78 Comprehensive metabolic panel - 04/14/19 13:10 Serum or plasma sodium measurement (moles/volume) 129 mmol/L 135-145 Serum or plasma potassium measurement (moles/volume) 3.4 mmol/L 3.6-5.0 Serum or plasma chloride measurement (moles/volume) 95 mmol/L 98-107 Carbon dioxide 28 mmol/L 21-32 Serum or plasma anion gap determination (moles/volume) 6 mmol/L 5-14 Serum or plasma urea nitrogen measurement (mass/volume ) 3 mg/dL 7-18 Serum or plasma creatinine measurement (mass/volume) 0.61 mg/dL 0.60-1.30 Serum or plasma urea nitrogen/creatinine mass ratio 5 NRG Serum or plasma creatinine measurement w ith calculation of estimated glomerular filtration rate > NRG Serum or plasma glucose measurement (mass/volume) 113 mg/dL 70-105 Serum or plasma calcium measurement (mass/volume) 8.5 mg/dL 8.5-10.1 Serum or plasma total bilirubin measurement (mass/volu me) 2.9 mg/dL 0.1-1.0 Serum or plasma alkaline phosphatase cathi surement (enzymatic activity/volume) 135 U/L 40-136 Serum or plasma aspartate aminotransfera se measurement (enzymatic activity/volume) 118 U/L 5-34 Serum or plasma alanine aminotransferase measurement (enzymatic activity/volume) 111 U/L 0-55 Serum or plasma protein measurement (mass/volume) 6.1 g/dL 6.4-8.2 Serum or plasma albumin measurement (mass/volume) 3.1 g/dL 3.2-4.5 CALCIUM CORRECTED 9.2 mg/dL 8.5-10.1 Serum or plasma amylase measurement (enz ymatic activity/volume) - 04/14/19 13:10 Serum or plasma amylase measurement (enzymatic activit y/volume) 145 U/L 25-125 Lipase - 04/14/19 13:10 Lipase 265 U/L 8 Comprehensive metabolic panel - 04/14/19 21:16 Serum or plasma sodium measurement (moles/volume) 134 mmol/L 135-145 Serum or plasma potassium measurement (moles/volume) 3.5 mmol/L 3.6-5.0 Serum or plasma chloride measurement (moles/volume) 97 mmol/L 98-107 Carbon dioxide 26 mmol/L 21-32 Serum or plasma anion gap determination (moles/volume) 11 mmol/L 5-14 Serum or plasma urea nitrogen measurement (mass/volume ) 3 mg/dL 7-18 Serum or plasma creatinine measurement (mass/volume) 0.64 mg/dL 0.60-1.30 Serum or plasma urea nitrogen/creatinine mass ratio 5 NRG Serum or plasma creatinine measurement w ith calculation of estimated glomerular filtration rate > NRG Serum or plasma glucose measurement (mass/volume) 136 mg/dL 70-105 Serum or plasma calcium measurement (mass/volume) 8.7 mg/dL 8.5-10.1 Serum or plasma total bilirubin measurement (mass/volu me) 2.6 mg/dL 0.1-1.0 Serum or plasma alkaline phosphatase cathi surement (enzymatic activity/volume) 165 U/L 40-136 Serum or plasma aspartate aminotransfera se measurement (enzymatic activity/volume) 163 U/L 5-34 Serum or plasma alanine aminotransferase measurement (enzymatic activity/volume) 133 U/L 0-55 Serum or plasma protein measurement (mass/volume) 6.2 g/dL 6.4-8.2 Serum or plasma albumin measurement (mass/volume) 3.2 g/dL 3.2-4.5 CALCIUM CORRECTED 9.3 mg/dL 8.5-10.1 Serum or plasma amylase measurement (enz ymatic activity/volume) - 04/14/19 21:16 Serum or plasma amylase measurement (enzymatic activit y/volume) 151 U/L 25-125 Lipase - 04/14/19 21:16 Lipase 267 U/L 8 Comprehensive metabolic panel - 04/15/19 05:40 Serum or plasma sodium measurement (moles/volume) 133 mmol/L 135-145 Serum or plasma potassium measurement (moles/volume) 3.3 mmol/L 3.6-5.0 Serum or plasma chloride measurement (moles/volume) 97 mmol/L 98-107 Carbon dioxide 24 mmol/L 21-32 Serum or plasma anion gap determination (moles/volume) 12 mmol/L 5-14 Serum or plasma urea nitrogen measurement (mass/volume ) 4 mg/dL 7-18 Serum or plasma creatinine measurement (mass/volume) 0.58 mg/dL 0.60-1.30 Serum or plasma urea nitrogen/creatinine mass ratio 7 NRG Serum or plasma creatinine measurement w ith calculation of estimated glomerular filtration rate > NRG Serum or plasma glucose measurement (mass/volume) 113 mg/dL 70-105 Serum or plasma calcium measurement (mass/volume) 8.5 mg/dL 8.5-10.1 Serum or plasma total bilirubin measurement (mass/volu me) 2.2 mg/dL 0.1-1.0 Serum or plasma alkaline phosphatase cathi surement (enzymatic activity/volume) 149 U/L 40-136 Serum or plasma aspartate aminotransfera se measurement (enzymatic activity/volume) 107 U/L 5-34 Serum or plasma alanine aminotransferase measurement (enzymatic activity/volume) 117 U/L 0-55 Serum or plasma protein measurement (mass/volume) 5.9 g/dL 6.4-8.2 Serum or plasma albumin measurement (mass/volume) 3.1 g/dL 3.2-4.5 CALCIUM CORRECTED 9.2 mg/dL 8.5-10.1 Serum or plasma amylase measurement (enz ymatic activity/volume) - 04/15/19 05:40 Serum or plasma amylase measurement (enzymatic activit y/volume) 138 U/L 25-125 Lipase - 04/15/19 05:40 Lipase 216 U/L 8-78 Serum or plasma ethanol measurement (mas s/volume) - 04/15/19 05:40 Serum or plasma ethanol measurement (mass/volume) < mg/dL <10 PT panel in platelet poor plasma by coag ulation assay - 04/15/19 05:40 Prothrombin time (PT) in platelet poor plasma by coagu lation assay 13.8 s 12.2-14.7 INR in platelet poor plasma or blood by coagulation as say 1.0 0.8-1.4 Activated partial thromboplastin time (a PTT) in platelet poor plasma bycoagulation assay - 04/15/19 05:40 Activated partial thromboplastin time (a PTT) in platelet poor plasma bycoagulation assay 39 s 24-35 Capillary blood glucose measurement by g lucometer (mass/volume) - 04/15/19 12:27 Capillary blood glucose measurement by glucometer (mas s/volume) 153 mg/dL 70-110 Comprehensive metabolic panel - 04/15/19 13:39 Serum or plasma sodium measurement (moles/volume) 134 mmol/L 135-145 Serum or plasma potassium measurement (moles/volume) 3.4 mmol/L 3.6-5.0 Serum or plasma chloride measurement (moles/volume) 98 mmol/L 98-107 Carbon dioxide 27 mmol/L 21-32 Serum or plasma anion gap determination (moles/volume) 9 mmol/L 5-14 Serum or plasma urea nitrogen measurement (mass/volume ) 3 mg/dL 7-18 Serum or plasma creatinine measurement (mass/volume) 0.61 mg/dL 0.60-1.30 Serum or plasma urea nitrogen/creatinine mass ratio 5 NRG Serum or plasma creatinine measurement w ith calculation of estimated glomerular filtration rate > NRG Serum or plasma glucose measurement (mass/volume) 155 mg/dL 70-105 Serum or plasma calcium measurement (mass/volume) 8.4 mg/dL 8.5-10.1 Serum or plasma total bilirubin measurement (mass/volu me) 1.7 mg/dL 0.1-1.0 Serum or plasma alkaline phosphatase cathi surement (enzymatic activity/volume) 145 U/L 40-136 Serum or plasma aspartate aminotransfera se measurement (enzymatic activity/volume) 94 U/L 5-34 Serum or plasma alanine aminotransferase measurement (enzymatic activity/volume) 114 U/L 0-55 Serum or plasma protein measurement (mass/volume) 6.1 g/dL 6.4-8.2 Serum or plasma albumin measurement (mass/volume) 3.1 g/dL 3.2-4.5 CALCIUM CORRECTED 9.1 mg/dL 8.5-10.1 Serum or plasma amylase measurement (enz ymatic activity/volume) - 04/15/19 13:39 Serum or plasma amylase measurement (enzymatic activit y/volume) 130 U/L 25-125 Lipase - 04/15/19 13:39 Lipase 217 U/L 8-78 Capillary blood glucose measurement by g lucometer (mass/volume) - 04/15/19 17:48 Capillary blood glucose measurement by glucometer (mas s/volume) 134 mg/dL 70-110 Comprehensive metabolic panel - 04/15/19 21:20 Serum or plasma sodium measurement (moles/volume) 135 mmol/L 135-145 Serum or plasma potassium measurement (moles/volume) 3.5 mmol/L 3.6-5.0 Serum or plasma chloride measurement (moles/volume) 101 mmol/L 98-107 Carbon dioxide 23 mmol/L 21-32 Serum or plasma anion gap determination (moles/volume) 11 mmol/L 5-14 Serum or plasma urea nitrogen measurement (mass/volume ) 3 mg/dL 7-18 Serum or plasma creatinine measurement (mass/volume) 0.58 mg/dL 0.60-1.30 Serum or plasma urea nitrogen/creatinine mass ratio 5 NRG Serum or plasma creatinine measurement w ith calculation of estimated glomerular filtration rate > NRG Serum or plasma glucose measurement (mass/volume) 130 mg/dL 70-105 Serum or plasma calcium measurement (mass/volume) 8.6 mg/dL 8.5-10.1 Serum or plasma total bilirubin measurement (mass/volu me) 1.7 mg/dL 0.1-1.0 Serum or plasma alkaline phosphatase cathi surement (enzymatic activity/volume) 147 U/L 40-136 Serum or plasma aspartate aminotransfera se measurement (enzymatic activity/volume) 83 U/L 5-34 Serum or plasma alanine aminotransferase measurement (enzymatic activity/volume) 103 U/L 0-55 Serum or plasma protein measurement (mass/volume) 6.0 g/dL 6.4-8.2 Serum or plasma albumin measurement (mass/volume) 3.1 g/dL 3.2-4.5 CALCIUM CORRECTED 9.3 mg/dL 8.5-10.1 Serum or plasma amylase measurement (enz ymatic activity/volume) - 04/15/19 21:20 Serum or plasma amylase measurement (enzymatic activit y/volume) 132 U/L 25-125 Lipase - 04/15/19 21:20 Lipase 219 U/L 8-78 Capillary blood glucose measurement by g lucometer (mass/volume) - 04/16/19 00:57 Capillary blood glucose measurement by glucometer (mas s/volume) 127 mg/dL 70-110 Comprehensive metabolic panel - 04/16/19 04:40 Serum or plasma sodium measurement (moles/volume) 136 mmol/L 135-145 Serum or plasma potassium measurement (moles/volume) 3.4 mmol/L 3.6-5.0 Serum or plasma chloride measurement (moles/volume) 103 mmol/L 98-107 Carbon dioxide 22 mmol/L 21-32 Serum or plasma anion gap determination (moles/volume) 11 mmol/L 5-14 Serum or plasma urea nitrogen measurement (mass/volume ) 3 mg/dL 7-18 Serum or plasma creatinine measurement (mass/volume) 0.57 mg/dL 0.60-1.30 Serum or plasma urea nitrogen/creatinine mass ratio 5 NRG Serum or plasma creatinine measurement w ith calculation of estimated glomerular filtration rate > NRG Serum or plasma glucose measurement (mass/volume) 137 mg/dL 70-105 Serum or plasma calcium measurement (mass/volume) 8.5 mg/dL 8.5-10.1 Serum or plasma total bilirubin measurement (mass/volu me) 1.4 mg/dL 0.1-1.0 Serum or plasma alkaline phosphatase cathi surement (enzymatic activity/volume) 166 U/L 40-136 Serum or plasma aspartate aminotransfera se measurement (enzymatic activity/volume) 102 U/L 5-34 Serum or plasma alanine aminotransferase measurement (enzymatic activity/volume) 107 U/L 0-55 Serum or plasma protein measurement (mass/volume) 5.7 g/dL 6.4-8.2 Serum or plasma albumin measurement (mass/volume) 2.9 g/dL 3.2-4.5 CALCIUM CORRECTED 9.4 mg/dL 8.5-10.1 Serum or plasma amylase measurement (enz ymatic activity/volume) - 04/16/19 04:40 Serum or plasma amylase measurement (enzymatic activit y/volume) 121 U/L 25-125 Lipase - 04/16/19 04:40 Lipase 193 U/L 8-78 Capillary blood glucose measurement by g lucometer (mass/volume) - 04/16/19 05:16 Capillary blood glucose measurement by glucometer (mas s/volume) 132 mg/dL 70-110 Capillary blood glucose measurement by g lucometer (mass/volume) - 04/16/19 12:22 Capillary blood glucose measurement by glucometer (mas s/volume) 153 mg/dL 70-110 Comprehensive metabolic panel - 04/16/19 13:15 Serum or plasma sodium measurement (moles/volume) 132 mmol/L 135-145 Serum or plasma potassium measurement (moles/volume) 3.6 mmol/L 3.6-5.0 Serum or plasma chloride measurement (moles/volume) 100 mmol/L 98-107 Carbon dioxide 27 mmol/L 21-32 Serum or plasma anion gap determination (moles/volume) 5 mmol/L 5-14 Serum or plasma urea nitrogen measurement (mass/volume ) 3 mg/dL 7-18 Serum or plasma creatinine measurement (mass/volume) 0.57 mg/dL 0.60-1.30 Serum or plasma urea nitrogen/creatinine mass ratio 5 NRG Serum or plasma creatinine measurement w ith calculation of estimated glomerular filtration rate > NRG Serum or plasma glucose measurement (mass/volume) 134 mg/dL 70-105 Serum or plasma calcium measurement (mass/volume) 8.6 mg/dL 8.5-10.1 Serum or plasma total bilirubin measurement (mass/volu me) 1.3 mg/dL 0.1-1.0 Serum or plasma alkaline phosphatase cathi surement (enzymatic activity/volume) 151 U/L 40-136 Serum or plasma aspartate aminotransfera se measurement (enzymatic activity/volume) 96 U/L 5-34 Serum or plasma alanine aminotransferase measurement (enzymatic activity/volume) 114 U/L 0-55 Serum or plasma protein measurement (mass/volume) 6.1 g/dL 6.4-8.2 Serum or plasma albumin measurement (mass/volume) 3.1 g/dL 3.2-4.5 CALCIUM CORRECTED 9.3 mg/dL 8.5-10.1 Serum or plasma amylase measurement (enz ymatic activity/volume) - 04/16/19 13:15 Serum or plasma amylase measurement (enzymatic activit y/volume) 123 U/L 25-125 Lipase - 04/16/19 13:15 Lipase 197 U/L 8-78 Encounters ACCT No. Visit Date/Time Discharge Status Pt. Type Provider Facility Loc./Unit Complaint [id number] 04/10/2019 15:18:00 019 16:51:00 DIS Outpatient DEXTER SPRAGUE, JENA [facility] 4TH ACUTE PANCREATITIS [id number] 02/17/2019 08:15:00 12:40:00 DIS Emergency VIVEK CLARK DO [facility] ER FS ABD PAIN [id number] 09/14/2018 22:05:00 00:45:00 DIS Emergency DAISHA ARMENTA DO [facility] ER FS HEAD INJURY [id number] 05/15/2018 09:53:00 13:30:00 DIS Outpatient PEYTON SPRAGUE, NICOLE Llanos [facility] RIGHT INGUINAL LYMPHAD ENITIS [id number] 05/08/2018 05:43:00 12:38:00 DIS Outpatient NICOLE TODD MD [facility] PREOP RIGHT INGUINAL LYMPHAD ENITIS
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
== END 2019-04-16 16:51 | disposition home or self-care (01) | DRG 432 ==
LOC: EDUNIT# 13:01 → ER FS 13:02 → 4TH 15:18
PROVIDERS: ADMIT Surgery; ATTEND Surgery
DX: K70.10 Alcoholic hepatitis without ascites (principal); K85.10 Biliary acute pancreatitis without necrosis or infection; K70.40 Alcoholic hepatic failure without coma; K75.89 Other specified inflammatory liver diseases; E87.1 Hypo-osmolality and hyponatremia; F10.232 Alcohol dependence with withdrawal with perceptual disturbance; F10.231 Alcohol dependence with withdrawal delirium; F17.203 Nicotine dependence unspecified, with withdrawal; D69.6 Thrombocytopenia, unspecified; E87.5 Hyperkalemia; E87.6 Hypokalemia; E83.42 Hypomagnesemia; E83.39 Other disorders of phosphorus metabolism; Z23 Encounter for immunization
CPT/HCPCS: 36415; 71045; 74177; 76705; 80053; 80074; 80320; 82150; 82248; 82962; 82977; 83690; 83735; 83880; 84100; 84478; 84484; 85025; 85027; 85610; 85730; 93005; 94664; 96361; 96365; 96375; 96376